=== PATIENT | male | born 1935 | race Caucasian/White ===

== ENCOUNTER 2017-01-13 14:36 | Inpatient (IN) | payer MEDICARE, MEDICAID ==
--- NOTE | 2017-01-13 15:29 | ED Physician Chart ---
ED Chief Complaint/HPI - Patient Information Date Seen:: 01/13/17 Time Seen:: 15:15 Chief Complaint:: Agitation History of Present Illness:: onset x 3 days of agitation, combative and aggressive behavior, confusion, and increased dementia; no report of trauma, H/As, Neck pain, C/P, SOB, cough, Abd. Pain, A/N/V/D/C, fever, chills, or urinary s/s; no SIs Allergies:: Allergies Allergy/AdvReac Type Severity Reaction Status Date / Time No Known Allergies Allergy Verified 01/13/17 15:13 Vitals:: Vital Signs - 8 hr 01/13/17 15:14 Temp 99.1 F HR 80 RR 19 BP 189/67 O2 Sat % 93 Historian:: Patient, Family Member Review:: Nurse's Note Reviewed ED Review of Systems - Review of Systems General/Constitutional: No fever, No chills, No weight loss, No weakness, No diaphoresis, No edema, No loss of appetite Skin: No skin lesions, No rash, No bruising Head: No headache, No light-headedness Eyes: No loss of vision, No pain, No diplopia ENT: No earache, No nasal drainage, No sore throat, No tinnitus Neck: No neck pain, No swelling, No thyromegaly, No stiffness, No mass noted Cardio Vascular: No chest pain, No palpitations, No PND, No orthopnea, No edema Pulmonary: No SOB, No cough, No sputum, No wheezing GI: No nausea, No vomiting, No diarrhea, No pain, No melena, No hematochezia, No constipation, No hematemesis G/U: No dysuria, No frequency, No hematuria Musculoskeletal: No bone or joint pain, No back pain, No muscle pain Endocrine: Polyuria, Polydipsia Psychiatric: No prior psych history, No depression, Anxiety, No suicidal ideation, No homicidal ideation, No auditory hallucination, No visual hallucination Hematopoietic: No bruising, No lymphadenopathy Allergic/Immuno: No urticaria, No angioedema Neurological: No syncope, No focal symptoms, No weakness, No paresthesia, No headache, No seizure, No dizziness, Confusion, No vertigo ED Past Medical History - Past Medical History Obtainable: Yes Past Medical History: HTN, DM, Dementia Family History: Diabetes Melitus, HTN Social History: Non Smoker, No Alcohol, No Drug Use, Surgical History: None Psychiatricy History: Dementia Medication: Reviewed ED Physical Exam - Physical Examination General/Constitutional: Awake, Well-developed, well-nourished, Alert, No distress, GCS 15, Non-toxic appearing, Ambulatory Head: Atraumatic Eyes: Lids, conjuctiva normal, PERRL, EOMI Skin: Nl inspection, No rash, No skin lesions, No ecchymosis, Well hydrated, No lymphadenopathy ENMT: External ears, nose nl, TM canals nl, Nasal exam nl, Lips, teeth, gums nl , Oropharynx nl, Tonsils nl Neck: Nontender, Full ROM w/o pain, No JVD, No nuchal rigidity, No bruit, No mass, No stridor Respiratory: Nl effort/Exclusion, Clear to Auscultation, No Wheeze/Rhonchi/Rales Cardio Vascular: RRR, No murmur, gallop, rubs, NL S1 S2, Carotid/Femoral/Distal pulses equal bilaterally GI: No tenderness/rebounding/guarding, No organomegaly, No hernia, Normal BS's, Nondistended, No mass/bruits, No McBurney tenderness : No CVA tenderness Extremities: No tenderness or effusion, Full ROM, normal strength in all extremities, No edema, Normal digits & nails Neuro/Psych: Alert/oriented, DTR's symmetric, Normal sensory exam, Normal motor strength, Judgement/insight normal, Mood normal, Normal gait, No focal deficits Other Neuro/Psych comments:: + Psychomotor Agitation; no SIs; Mood/Affect: Labile Misc: Normal back, No paraspinal tenderness ED Septic Shock - . Is Septic Shock (SBP<90, OR Lactate>4 mmol\L) present?: No - <6hrs of presentation: Vital Signs: Vital Signs - 8 hr 01/13/17 15:14 Temp 99.1 F HR 80 RR 19 BP 189/67 O2 Sat % 93 ED Reassessment (Disposition) - Reassessment Reassessment Condition:: Improved - Diagnosis Diagnosis:: Agitation; BiPolar Disorder; Dementia; Manic-Depression - Aftercare/Follow up Instructions Aftercare/Follow-Up Instructions:: Counseled pt regarding lab results/diagnosis & need follow up, Counseled pt & family regarding lab results/diagnosis & need follow up - Patient Disposition Discharge/Transfer:: Acute Care w/in this hosp Accepting Physician:: Dr. Oviedo Time Called:: 1520 Time Responded:: 15:20 Admitted to:: [facility] Spoke to:: Dr. Oviedo Admitting Medical Physician:: Dr. Oviedo Condition at Disposition:: Stable, Improved ED Discharge Plan - Patient Disposition Instructions: Psychosis
--- NOTE | 2017-01-13 15:46 | Diagnostic Imaging Report ---
CT scan of the brain without intravenous contrast HISTORY: Dementia Total DLP equals 1208 CTDI equals 77.7 Axial sections were obtained from the base of the skull to the vertex. There is prominence/enlargement of the ventricular system size. Associated enlargement of cerebral sulci and subarachnoid cisterns. Findings are consistent with changes of generalized cerebral atrophy. No acute parenchymal abnormalities. No acute cerebral hemorrhage. Hypodensity is seen within the supratentorial white matter regions without mass effect. The findings may be associated with chronic small vessel ischemic disease. No extra-axial masses or abnormal fluid collections. Atherosclerotic calcification noted in the region of the vertebral arteries at the base of the skull. IMPRESSION: 1. No acute abnormalities 2. Cerebral atrophy 3. Supratentorial white matter changes that may reflect chronic small vessel ischemic disease 4. Atherosclerotic vascular changes
--- NOTE | 2017-01-13 15:47 | Diagnostic Imaging Report ---
Portable chest x-ray HISTORY: Chest pain The overall heart size is difficult to assess with portable technique in a poor inspiration. A linear density is seen within the left lung base. The finding may be associated with scarring or subsegmental atelectasis. No other focal processes. Cardiac pacemaker lead wires project over the right atrium and right ventricle. No hilar or mediastinal abnormalities. IMPRESSION: 1. Linear density within the left lung base that may be associated with scarring or subsegmental atelectasis. No other focal processes.
[2017-01-13 16:03] LABS: ALB/GLOB RATIO 1.6 (1.0-1.8); ALBUMIN 4.2 gm/dL (4.2-5.5); ALKALINE PHOSPHATASE 80 U/L (34-104); ANION GAP 10.4 (7.0-16.0); BILIRUBIN,TOTAL 0.9 mg/dL (0.3-1.0); BUN - UREA NITROGEN 11 mg/dL (7-25); CALCIUM SERUM 9.5 mg/dL (8.6-10.3); CARBON DIOXIDE 27.5 mEq/L (21.0-31.0); CHLORIDE 99 mEq/L (98-107); CHOLESTEROL 101 mg/dL (<200); CREATININE - SERUM 0.7 mg/dL (0.7-1.3); CREATININE KINASE 41 U/L (30-223); GLUCOSE 195 mg/dL (70-105); HDL -HIGH DENSITY LIPOPROTEIN 40 mg/dL (23-92); POTASSIUM SERUM 3.9 mEq/L (3.5-5.1); SGOT 16 U/L (13-39); SGPT/ALT 18 U/L (7-52); SODIUM SERUM 133 mEq/L (136-145); TOTAL PROTEIN,SERUM 6.9 gm/dL (6.0-8.3); TRIGLYCERIDES 137 mg/dL (<150)
[2017-01-13 16:13] LABS: A1C % 7.4 % (4.0-6.0)
[2017-01-13 16:15] LABS: BASOPHILE ABSOLUTE 0.2 Th/cumm (0-0.2); EOSINOPHILE ABSOLUTE 0.2 Th/cmm (0.1-0.4); MEAN CORPUSCULAR HGB CONC 33.5 pg (28.0-36.0); NEUTROPHILE ABSOLUTE 7.8 Th/cmm (1.8-8.0)
[2017-01-13 16:18] LABS: % BASOPHILS 1.8 % (0.0-2.0); % EOSINOPHILS 2.1 % (0.0-5.0); % LYMPHOCYTES 23.6 % (20.0-50.0); % NEUTROPHILS 66.5 % (40.0-80.0); HEMATOCRIT 47.1 % (41.0-60); HEMOGLOBIN 15.8 gm/dL (12-16); LYMPHOCYTE ABSOLUTE 2.7 Th/cmm (1.5-3.0); MEAN CELL VOLUME 95.4 fl (80-99); MEAN CORPUSCULAR HEMOGLOBIN 31.9 pg (27.0-31.0); MEAN PLATELET VOLUME 9.5 fl; MONOCYTE ABSOLUTE 0.7 Th/cmm (0.3-1.0); PLATELET COUNT 154 Th/cmm (150-400); RED BLOOD COUNT 4.93 Mil/cmm (3.80-5.80); WHITE BLOOD COUNT 11.6 Th/cmm (4.8-10.8)
[2017-01-13 16:19] LABS: INR 0.95 (0.5-1.4); PROTHROMBIN TIME (TEST) 9.9 SECONDS (9.5-11.5)
[2017-01-13 16:29] LABS: URINE MICROSCOPIC INDICATED? YES; URINE SOURCE CLEAN C
[2017-01-13 16:35] LABS: URINE BILIRUBIN NEGATIVE (NEGATIVE); URINE BLOOD NEGATIVE (NEGATIVE); URINE GLUCOSE (UA) NEGATIVE (NEGATIVE); URINE KETONE NEGATIVE (NEGATIVE); URINE LEUKOCYTE ESTERASE NEGATIVE (NEGATIVE); URINE NITRATE NEGATIVE (NEGATIVE); URINE PH 5.5 (4.6 - 8.0); URINE PROTEIN NEGATIVE (NEGATIVE); URINE UROBILINOGEN 0.2 E.U./dL (0.2 - 1.0)
[2017-01-13 16:50] LABS: AMPHETAMINE URINE NEGATIVE (NEGATIVE); BARBITURATES URINE NEGATIVE (NEGATIVE); BENZODIAZEPINES QUAL URINE POSITIVE (NEGATIVE); CANNABINOID THC NEGATIVE (NEGATIVE); COCAINE METABOLITE QUAL URINE NEGATIVE (NEGATIVE); METHADONE URINE NEGATIVE (NEGATIVE); METHAMPHETAMINES QUAL URINE NEGATIVE (NEGATIVE); OPIATES (MORPHINE) QUAL. URINE NEGATIVE (NEGATIVE); PHENCYCLIDINE (PCP) URINE NEGATIVE (NEGATIVE); TRICYCLICS (TCA) QUAL. URINE NEGATIVE (NEGATIVE)
[2017-01-13 18:24] VITALS: BP 180/80
[2017-01-13] MEDS ORDERED: Magnesium Hydroxide (MOM) 30 mL UDC PO PRN (18:24)
[2017-01-13] MEDS ORDERED: Maalox 30 mL Cup PO PRN (18:24)
[2017-01-13 20:13] LABS: ACETAMINOPHEN < 10.0 ug/mL (10.0-30.0); SALICYLATES (ASPIRIN) < 25.0 mg/L (30.0-100.0)
[2017-01-13 21:04] LABS: URINE CLARITY CLEAR (CLEAR); URINE COLOR YELLOW
[2017-01-14] MEDS ORDERED: cloNIDine 0.3 mg/24 hr Tdm TD SCH (02:45)
[2017-01-14] MEDS: INSULIN ASPART SLIDING SCALE 100 UNITS/ML UNIT SUBQ SCH ×4 (07:05→20:41)
[2017-01-14 08:27] LABS: URINE BACTERIA OCCASIONAL /hpf (NONE SEEN); URINE EPITHELIAL CELLS OCCASIONAL /lpf (FEW); URINE RBC 0-2 /hpf (0-5); URINE WBC 0-2 /hpf (0-5)
[2017-01-14] MEDS ORDERED: cloNIDine 0.1 mg/24 hr Tdm TD SCH (11:00)
[2017-01-14] MEDS ORDERED: cloNIDine 0.2 mg/24 hr Tdm TD SCH (11:00)
[2017-01-14] MEDS: Multivitamin Tab PO SCH (11:28)
--- NOTE | 2017-01-15 01:43 | Psychosocial Evaluation ---
DATE OF SERVICE: 01/13/2017 IDENTIFYING DATA: The patient is an 81-year-old male living with his family. Information obtained by directly interviewing the patient as well as reviewing the admission papers and they are reliable. JUSTIFICATION OF HOSPITALIZATION: The patient is admitted on a voluntary basis in view of his acute psychosis. CHIEF COMPLAINT: "I don't know." HISTORY OF PRESENT ILLNESS: This is the first psychiatric hospitalization to [facility] for this patient who has been reported over here by Dr. Chantelle Oviedo. As per the information obtained, the patient is reported to have been acting very bizarre and has been trying to get into other people's places and has been acting inappropriately and patient's family could not contain him. The patient has been maintained on 0.25 mg of the Risperdal by Dr. Oviedo. The patient has not been able to contact with safety. The patient has also been treated for hypertension with clonidine. At the time of the evaluation, patient is confused and he is not making much sense. Insight and judgment at this time are noted to be very much impaired. Impulse control seems to be limited. The patient has been having difficult time to give any coherent information. The patient is going to be closely monitored. Sleep and appetite prior to the hospitalization are reported to be poor. PAST PSYCHIATRIC HISTORY: Details are not known. MEDICAL HISTORY: Physical examination is requested and done by Dr. Chantelle Oviedo and is noted to be significant for high blood pressure and diabetes. SUBSTANCE ABUSE HISTORY: None. PHYSICAL OR SEXUAL ABUSE HISTORY: None. LEGAL PROBLEMS: None at this time. STRENGTH AND ASSETS: The patient seems to be motivated and has good family support. MENTAL STATUS EXAMINATION: The patient is an 81-year-old, looking his stated age, superficially cooperative. Eye contact is fair. Mood is irritable. Affect is constricted. Coping skills at this time are noted to be poor. Insight and judgment are also noted to be impaired. The patient is reported to have been going into other people homes and has been acting inappropriate, particularly sexually. The patient at this time is very paranoid and is not making much sense. 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 DIAGNOSTIC IMPRESSION: AXIS I: A. Psychosis, not otherwise specified. B. Dementia and behavioral change secondary to it. AXIS II: None. AXIS III: Diabetes mellitus and hypertension. IMMEDIATE TREATMENT PLAN: The patient is going to be placed on the Risperdal 0.5 mg and continue the Namenda and Aricept. ESTIMATED LENGTH OF STAY: Three to five days. DISCHARGE CRITERIA: When he no longer is a threat to self or others and be able to cope up with the stress. JOB# [id number]
--- NOTE | 2017-01-15 05:48 | History & Physical ---
ADMIT DATE: 01/14/2017 HISTORY OF PRESENT ILLNESS: An 81-year-old male who was brought to the Emergency Room with complaint of abnormal behavior. The patient was going to neighbor's house and landlord complained. The patient was evaluated in the office and referred to the Emergency Room for immediate psych evaluation. The patient was given admission orders to Geropsych Unit. PAST MEDICAL HISTORY: Diabetes, hypertension, hyperlipidemia, low back pain, appendectomy, depression, anxiety. SOCIAL HISTORY: Nonsmoker. ALLERGIES: No allergies. MEDICATIONS: The patient already received influenza vaccine office on 10/31/2016 and PCV13 on 03/29/2012. REVIEW OF SYSTEMS: A 14-point review of system negative except above. PHYSICAL EXAMINATION: GENERAL/VITAL SIGNS: The patient is confused with the following vital signs: Temperature 98.4, pulse 68, respirations 19, blood pressure 119/79. HEENT: Mild pallor, no icterus or plaque. NECK: Supple. LUNGS: Breath sounds bilaterally vesicular. CARDIOVASCULAR: S1, S2. ABDOMEN: Soft, bowel sounds present. Pendulous abdomen. NODES: No thyroid and no cervical lymph nodes. LABORATORY DATA: RPR negative. White count 11,000, hemoglobin 15 grams, platelets 154. Creatinine 0.7. DIAGNOSES: Psychosis, abnormal behavior, inpatient care with Dr. Paula consult. Patient medication reconciled. Diabetes, insulin sliding scale. Ativan for anxiety. Benign prostatic hypertrophy, Flomax. Rest of the care as ordered in CPOE. JOB# [id number]
[2017-01-15] MEDS: INSULIN ASPART SLIDING SCALE 100 UNITS/ML UNIT SUBQ SCH ×2 (06:55→11:11)
[2017-01-15] MEDS: Multivitamin Tab PO SCH (08:43)
--- NOTE | 2017-01-15 23:14 | Progress Notes ---
DATE: 01/15/2017 SUBJECTIVE: Staff was spoken to. The patient is interviewed. Mood is noted to be irritable. Affect is constricted. Insight and judgment are noted to be still impaired. The patient is still having short-term as well as long-term memory deficits, but patient tends to be screaming and yelling. The patient needs to be redirected. No side effects to the medications are noted. Coping skills are noted to be still poor. Sleep is noted to be poor. Appetite is noted to be fair. ASSESSMENT: The patient is still psychotic. PLAN: To continue the patient with the current medications and follow. JOB# [id number]
== END 2017-01-15 15:00 | disposition left against medical advice (07) | DRG 885 ==
LOC: ER 14:36 → GERO 17:40
PROVIDERS: ADMIT Psychiatry & Neurology Psychiatry; ATTEND Psychiatry & Neurology Psychiatry
DX: F29 Unspecified psychosis not due to a substance or known physiological condition (principal); F03.91 Unspecified dementia, unspecified severity, with behavioral disturbance; E11.9 Type 2 diabetes mellitus without complications; F31.9 Bipolar disorder, unspecified; I10 Essential (primary) hypertension; N40.0 Benign prostatic hyperplasia without lower urinary tract symptoms; F41.9 Anxiety disorder, unspecified; Z82.49 Family history of ischemic heart disease and other diseases of the circulatory system; Z83.3 Family history of diabetes mellitus
CPT/HCPCS: 36415-UA; 70450-TC; 71010-TC; 80053-TC; 80061-TC; 80307; 80320-TC; 80329-TC; 81001-TC; 82550-TC; 82948-90; 83036-90; 83880-TC; 84443-TC; 84484-TC; 85025-TC; 85610-TC; 86592-TC; 93005; 94760; J1815; Z7610

== ENCOUNTER 2017-05-24 14:57 | Inpatient (IN) | payer MEDICARE, MEDICAID ==
[2017-05-24 16:13] LABS: % BASOPHILS 0.5 % (0.0-2.0); % EOSINOPHILS 1.8 % (0.0-5.0); % LYMPHOCYTES 21.8 % (20.0-50.0); % MONOCYTES 8.9 % (2.0-10.0); EOSINOPHILE ABSOLUTE 0.2 Th/cmm (0.1-0.4); HEMATOCRIT 42.8 % (41.0-60); HEMOGLOBIN 14.2 gm/dL (12-16); MEAN CELL VOLUME 94.4 fl (80-99); MEAN CORPUSCULAR HEMOGLOBIN 31.4 pg (27.0-31.0); MEAN CORPUSCULAR HGB CONC 33.2 pg (28.0-36.0); MEAN PLATELET VOLUME 8.1 fl; MONOCYTE ABSOLUTE 0.8 Th/cmm (0.3-1.0); NEUTROPHILE ABSOLUTE 6.4 Th/cmm (1.8-8.0); PLATELET COUNT 269 Th/cmm (150-400); RED BLOOD COUNT 4.54 Mil/cmm (3.80-5.80); WHITE BLOOD COUNT 9.4 Th/cmm (4.8-10.8)
[2017-05-24 16:24] LABS: PROTHROMBIN TIME (TEST) 10.4 SECONDS (9.5-11.5)
[2017-05-24 16:29] LABS: ALB/GLOB RATIO 1.9 (1.0-1.8); BILIRUBIN,DIRECT 0.2 mg/dL (0.0-0.2); TOTAL PROTEIN,SERUM 6.1 gm/dL (6.0-8.3)
[2017-05-24 16:31] LABS: ALB/GLOB RATIO 1.5 (1.0-1.8); ALBUMIN 3.9 gm/dL (4.2-5.5); ALKALINE PHOSPHATASE 56 U/L (34-104); ANION GAP 11.8 (7.0-16.0); BUN - UREA NITROGEN 20 mg/dL (7-25); CALCIUM SERUM 9.3 mg/dL (8.6-10.3); CARBON DIOXIDE 22.4 mEq/L (21.0-31.0); CHLORIDE 101 mEq/L (98-107); CREATININE - SERUM 0.9 mg/dL (0.7-1.3); GLUCOSE 272 mg/dL (70-105); POTASSIUM SERUM 4.2 mEq/L (3.5-5.1); SGOT 10 U/L (13-39); SGPT/ALT 11 U/L (7-52); SODIUM SERUM 131 mEq/L (136-145); TOTAL PROTEIN,SERUM 6.5 gm/dL (6.0-8.3)
[2017-05-24] MEDS ORDERED: Acetaminophen 500 MG TAB PO ONE (17:58)
[2017-05-24] MEDS ORDERED: Acetaminophen 500 MG TAB ONE ×2 (18:28)
[2017-05-24] MEDS ORDERED: Magnesium Hydroxide (MOM) 30 mL UDC PO PRN (20:00)
[2017-05-24 21:31] LABS: A1C % 7.5 % (4.0-6.0)
--- NOTE | 2017-05-24 23:05 | ER Physician Documentation ---
DATE OF SERVICE: 05/24/2017 EMERGENCY ROOM EVALUATION AND TREATMENT IDENTIFICATION: An 81-year-old male patient, looks about 5 years younger than his stated age. Evaluated by the triage nurse at 1500 hours and I saw him something like about a half an hour after that. [facility]. The patient was sent here for the medical checkup and if nothing serious is found, then the patient should go to psych facility. Temperature is found to be 99.1, pulse is 90, respirations 21, blood pressure 156/65, oxygen saturation is 97%. The patient is not in a condition to give me any history. He knows that he is in the hospital, he can recognize his daughter and the granddaughter, but to the other gentleman who is there he says that is his son, but the gentleman was the of his daughter, the son-in-law. History of present illness and review of systems could not be obtained. On physical examination, he is awake. He knows he is in the hospital. He is not in any acute cardiorespiratory distress. General exam is benign and negative. No suture. Good hair growth. Carotids are normal. Normal uplift. No cyanosis, petechia, or ecchymosis. Peripheral pulses are normal. No deep vein thrombophlebitis. Permanent pacemaker is seen in the left subpectoral area. Chest is found to be clear. Trachea is being central. Fairly good air entry in both lungs without any rales, rhonchi, or bronchial wheezing. Abdomen is soft, obese, benign, and umbilicus is protruding out thereby telling us that there might be some ascites present in the belly. Whether it is because of the liver cirrhosis or whether pancreatic fluid is present in the belly, but most likely it is a cirrhotic fluid. 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 EKG was just done showing old inferior wall myocardial infarction and minor nonspecific ST changes in lead 1 and aVL and possibly left atrial enlargement is a probability. Counterclockwise rotation of the heart. So, in view of that, it is possible that the patient suffered an inferior wall SD and had a complete heart block at that time and if that is the reason, usually with inferior wall SD, the complete heart block returns back to normal and you do not need usually a permanent pacemaker, but I am not sure what was the situation during which this pacemaker was inserted about 4-5 years ago. The patient is getting lactulose solution that tells us that the patient has cirrhotic liver by all means, unless the patient has chronic constipation for which lactulose is given. Lactulose could be double use for constipation and also for cirrhotic liver. The patient is taking Lipitor, thereby patient may be having high cholesterol. The patient has depression for which he is taking Namenda 5 mg a day, Naprosyn twice a day for pain and this could hurt his kidneys. As much as possible, Naprosyn should be cut down or discontinued. Protonix for gastroesophageal reflux disease. NovoLog sliding scale for insulin. Risperdal tablet 0.25 mg 1 tablet by mouth twice a day for psychotic behavior. It is also given for Parkinson's. It is also given for restless legs syndrome. The patient is taking Tylenol for simple pain, valsartan that is angiotensin receptor blocking agent 160 mg by mouth once a day. The patient is taking vitamin D3, 1000 units once a day; and Voltaren gel, Voltaren is an HELEN inhibitor and gel 1% is diclofenac, that is a nonsteroidal anti-inflammatory medication. One of my patients had very severe reaction with diclofenac leading to liver failure and so this has to be used very carefully. The patient is also taking Voltaren XR tablet extended release 24 hours 100 mg, which is a very high dosage, usually 50 mg is the dose chosen for anti-inflammatory arthritis medication, but we will leave it for the MD who is in charge of the patient to decide, but I would recommend that valsartan to be divided into 80 mg twice a day instead of 160 mg once a day, Voltaren gel if possible to be stopped. Voltaren XR tablet if possible one can stop it. Prevention is better than cure. Psychiatric gonzalez, he is taking Aricept tablet 5 mg once a day, that is donepezil; Ativan 0.5 mg a day; buspirone/hydrochloride 10 mg 1 tablet by mouth once a day; Catapres tablet he is taking one tablet every 6 hours plus he is taking a patch 0.2 mg every 24 hours, ideally 0.2 mg every weekly is to be given and he is getting that every weekly plus the patient is getting aspirin once a day; Flomax usually given for enlarged prostate. He is taking Glucophage tablet, metformin 1 tablet by mouth twice a day 500 mg. In conclusion, the final diagnosis is the patient has inappropriate behavior, psychosis, diabetes mellitus, hypertension, hyperlipidemia, difficulty in walking, not elsewhere classified, abnormal posture, essential hypertension, benign prostatic hypertrophy without lower urinary tract symptoms, hyperlipidemia, gastroesophageal reflux disease, unspecified, dementia without behavioral disturbances, anxiety disorder, atherosclerotic heart disease of [place] coronary arteries without angina pectoris. The patient has a permanent pacemaker in the left subclavicular area, presence of cardiac pacemaker. It looks like it is a simple pacemaker. If it is put in during the complete heart block of inferior wall SD, then the pacemaker may not be of much help at the present moment and may last for years. The patient also has type 2 diabetes and neuropathy for which he takes metformin along with insulin supplementation. Urinary tract infection, most likely this comes from enlarged prostate in men, urine infection starts from the prostate area. The lab that was done at other institution showed white count of 10.98, hemoglobin to be 14.6, hematocrit is 44.0, platelet count is 142, neutrophils are 72.6. Electrolytes were found to be normal, except the potassium was found to be 3.6. Random glucose at one time was 102, BUN was 11, creatinine of 0.65. So, the plan is to examine him, get the labs done. If the labs are normal, then the patient will go to the psych facility. 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 JOB# [id number]
[2017-05-25 01:11] VITALS: BP 161/91
[2017-05-25] MEDS: INSULIN ASPART SLIDING SCALE 100 UNITS/ML UNIT SUBQ SCH ×4 (07:08→21:00)
--- NOTE | 2017-05-25 08:31 | Diagnostic Imaging Report ---
CHEST X-RAY: AP view INDICATION: Pneumonia COMPARISON: 01/13/2017 FINDINGS: Left chest wall pacemaker is stable. Left basal linear markings are noted with left basal pleural thickening. No focal consolidation. Heart size normal. Osseous structures are intact. IMPRESSION: Left basal linear markings which may be due to subsegmental atelectasis versus scarring. No focal consolidation identified. Pacemaker noted.
[2017-05-25] MEDS: Pantoprazole 40 mg EC Tab PO SCH (08:43)
[2017-05-25] MEDS: Lidocaine 5% Patch TD SCH (10:00)
--- NOTE | 2017-05-25 19:05 | Psychosocial Evaluation ---
DATE OF SERVICE: 05/25/2017 JUSTIFICATION FOR HOSPITALIZATION: The patient coming in from [facility] rehabilitation due to inappropriate behaviors, agitation, could not be cared for at a lower level of care. CHIEF COMPLAINT: "I am not good. My head hurts." HISTORY OF PRESENT ILLNESS: An 81-year-old male, poor historian. The patient had apparently been inappropriate custodial. The patient went to the ER due to medical clearance. The patient is AO to name. He knows that he is in the hospital. He does not know why he is in the hospital, states here because of a headache and "I am not good." Apparently was acting quite inappropriately at custodial. The patient not answering most questions. At some point, refusing to speak with me. PAST PSYCHIATRIC HISTORY: Unclear. FAMILY HISTORY: Unclear. SOCIAL HISTORY: The patient states he was born in [facility], states he is , states he lives in [place] with his daughter, but apparently coming from a custodial. He states he has 5 kids. Not answering some questions. MEDICATIONS: Noted. MENTAL STATUS EXAMINATION: Stated age. Fair eye contact. Speech within normal limits, irritable, evasive and guarded. Mood "not good." Affect flat. Thought processes were somewhat disoriented. No SI, no HI, unclear psychotic symptoms. He was apparently quite unruly at custodial. Insight and judgment diminished. PROVISIONAL DIAGNOSES: Dementia per documentation, dementia with behaviors, psychosis unspecified, anxiety unspecified. MEDICAL: Please see full H and P. ESTIMATED LENGTH OF STAY: 5-7 days. ASSESSMENT: The patient requiring inpatient hospitalization, unruly behaviors and appropriate behaviors, poor historian. PLAN: We will continue to monitor. We will adjust and titrate medications. We will address any unruly and inappropriate behaviors. TREATMENT PLAN: Includes group as well as milieu therapy. CONDITIONS FOR DISCHARGE: Improved mood, improved affect, better control of his behavioral symptoms and any agitation. JOB# [id number]
--- NOTE | 2017-05-25 20:34 | Consultation ---
DATE OF CONSULTATION: 05/24/2017 INTERNAL MEDICINE CONSULTATION HISTORY OF PRESENT ILLNESS: The patient is an 81-year-old male known to me being the primary care physician. PAST MEDICAL HISTORY: Significant for diabetes mellitus, diabetic angiopathy, neuropathy, nephropathy, hypertension, coronary artery disease, peptic ulcer disease, ____ arthritis, osteoporosis, and hyperlipidemia. CURRENT MEDICATIONS: Include Tylenol, baby aspirin, Lipitor 40 mg daily, sliding scale, the patient is on milk of magnesia, Namenda, Glucophage 500 twice a day, Naprosyn 375 twice a day, Flomax 0.4 mg daily, and Protonix 40 mg daily. SOCIAL HISTORY: No documented smoking or alcohol abuse. FAMILY HISTORY: Not available. REVIEW OF SYSTEMS: The patient has been very aggressive and was transferred to [facility]. No vomiting, no diarrhea, no melena, no hematochezia. PHYSICAL EXAMINATION: GENERAL: Average male, in no obvious respiratory distress. VITAL SIGNS: Include a blood pressure 140/80, heart rate 80, and respiration rate of 18. SKIN: Showed no obvious cellulitis. HEENT: Normal conjunctivae. NECK: Supple. LUNGS: Clear. HEART: First and second present. ABDOMEN: Soft, bowel sounds good. EXTREMITIES: Show arthritis. NEUROLOGIC: The patient has dementia. LABORATORY DATA: White count 9.4, hemoglobin 14.2, hematocrit 42.8, and platelet count of 269. Sodium 131, potassium 4.2, chloride 101, bicarbonate 22, BUN 20, creatinine 0.9, and blood sugar 272. Hemoglobin A1c 7.5. MEDICAL DIAGNOSES: Diabetes mellitus, diabetic angiopathy, neuropathy, hypertension, coronary artery disease, peptic ulcer disease, ____, arthritis, osteoporosis, and hyperlipidemia. JOB# [id number]
[2017-05-25] MEDS ORDERED: DICLOFENAC SODIUM 1% TP SCH (21:00)
[2017-05-26] MEDS: INSULIN ASPART SLIDING SCALE 100 UNITS/ML UNIT SUBQ SCH ×4 (07:04→21:03)
[2017-05-26] MEDS: Pantoprazole 40 mg EC Tab PO SCH (08:19)
[2017-05-26] MEDS: Lidocaine 5% Patch TD SCH (10:00)
--- NOTE | 2017-05-26 18:12 | Progress Notes ---
DATE: 05/26/2017 SUBJECTIVE: The patient is coming in from [facility] due to inappropriate behaviors, agitation, still claiming he has a headache, very upset, still with aggressive behaviors, unruly behaviors, agitated behaviors. The patient refusing to answer most questions, does not want to engage with me. Medications were noted including doses and frequencies. ASSESSMENT: The patient remains symptomatic, still unruly, agitated, recent dose increase of Risperdal, not safe for a lower level of care. We will monitor and follow up. JOB# [id number]
[2017-05-27] MEDS: INSULIN ASPART SLIDING SCALE 100 UNITS/ML UNIT SUBQ SCH ×4 (06:47→20:51)
[2017-05-27] MEDS: Pantoprazole 40 mg EC Tab PO SCH (09:16)
[2017-05-27] MEDS: Lidocaine 5% Patch TD SCH (10:14)
[2017-05-27] MEDS: Lactulose 10 Gm/15 mL 30mL UDC PO SCH (17:59)
--- NOTE | 2017-05-28 00:47 | Progress Notes ---
DATE: 05/27/2017 The patient is coming in from [facility], inappropriate behaviors, agitation. States he is here because he has a headache, still isolative, withdrawn, not really engaging with me, mumbling to self, not answering any questions, not a very good historian, difficult to get any information out of him. On a positive note, he has been calm, no lashing out behaviors, no combative behaviors, he just seems quite confused. ASSESSMENT: The patient remains symptomatic, ongoing safety concerns. We will try to increase collateral. I do have concerns about his impulse control. JOB# [id number]
[2017-05-28] MEDS: INSULIN ASPART SLIDING SCALE 100 UNITS/ML UNIT SUBQ SCH ×4 (06:47→21:07)
[2017-05-28] MEDS: Lactulose 10 Gm/15 mL 30mL UDC PO SCH ×2 (08:31→16:37)
[2017-05-28] MEDS: Pantoprazole 40 mg EC Tab PO SCH (08:32)
[2017-05-28] MEDS: Lidocaine 5% Patch TD SCH (09:15)
--- NOTE | 2017-05-28 17:50 | Progress Notes ---
DATE: 05/28/2017 The patient is coming in from [facility] rehab due to inappropriate behaviors, agitation, bizarre behaviors, mumbling to self, trying to get sexual favors from other patients, committing sexual acts on himself which are quite bizarre in nature. The patient answering no questions whatsoever, still with bizarre symptoms, seemingly psychotic symptoms, highly sexualized and inappropriate symptoms. He remains reclusive. ASSESSMENT: The patient remains symptomatic as noted, not safe for a lower level of care, staff concerned. Given his ongoing behaviors, I will be increasing Risperdal today. Medications were reviewed. JOB# [id number]
[2017-05-29] MEDS: INSULIN ASPART SLIDING SCALE 100 UNITS/ML UNIT SUBQ SCH ×4 (06:36→21:20)
[2017-05-29] MEDS: Lactulose 10 Gm/15 mL 30mL UDC PO SCH ×2 (10:00→17:04)
[2017-05-29] MEDS: Pantoprazole 40 mg EC Tab PO SCH (10:00)
[2017-05-29] MEDS: Lidocaine 5% Patch TD SCH (11:44)
--- NOTE | 2017-05-30 01:56 | Progress Notes ---
DATE: 05/29/2017 The patient coming in from [facility] due to inappropriate behaviors, agitation, bizarre behaviors, still bizarre on the unit, sexually inappropriate on the unit, hypersexual in the unit. The patient states he "does not feel good," that is all he has been telling me, that he has a headache from time to time or that he just feels "sick," but he remains highly reclusive, bizarre, not saying much, highly disoriented. Dr. Scales is on the case and is addressing any medical concerns. Medications were noted. ASSESSMENT: The patient remains symptomatic, bizarre, still with ongoing psychotic behaviors, unruly behavior, still in a Cristina chair. We will continue to monitor. I did increase Risperdal yesterday. JOB# [id number]
[2017-05-30] MEDS: INSULIN ASPART SLIDING SCALE 100 UNITS/ML UNIT SUBQ SCH ×4 (06:46→20:16)
--- NOTE | 2017-05-30 08:13 | Progress Notes ---
DATE: 05/30/2017 The patient coming in from [facility] due to inappropriate behaviors, agitation, bizarre behaviors, sexually inappropriate on the unit. On [id number], the patient cursing, stating he does not want to talk to me, still bizarre, reclusive, isolative, still highly impulsive, unpredictable and hypersexual. ASSESSMENT: The patient remains symptomatic, hypersexual, bizarre, still unruly at times, confused, not answering any questions appropriately, refusing to speak with me in fact. Medications were noted. We will monitor and follow up. [facility]# [id number]
[2017-05-30] MEDS: Lidocaine 5% Patch TD SCH (09:40)
[2017-05-30] MEDS: cloNIDine 0.2 mg/24 hr Tdm TD SCH (09:43)
[2017-05-30] MEDS: Lactulose 10 Gm/15 mL 30mL UDC PO SCH ×2 (09:47→17:13)
[2017-05-30] MEDS: Pantoprazole 40 mg EC Tab PO SCH (09:50)
[2017-05-31] MEDS: INSULIN ASPART SLIDING SCALE 100 UNITS/ML UNIT SUBQ SCH ×4 (06:39→22:01)
--- NOTE | 2017-05-31 06:53 | Progress Notes ---
DATE: The patient seen, chart reviewed, discussed with staff. The patient seen today on 05/31/2017, coming in from physical rehabilitation due to inappropriate behaviors. Staff noting no sexually inappropriate behaviors for some days, but last week he was quite sexually inappropriate, bizarre. He remains hypersexual, highly impulsive, unpredictable, very confused, does not know where he is and does not why he is here. Does not know the year, the month, the day, or the week. Medications were noted. ASSESSMENT: The patient remains symptomatic, highly impulsive, unpredictable, still bizarre behaviors, unruly behaviors. Medications were noted. No overt side effects. Currently on low-dose Risperdal, it seems to be helping. PLAN: We will continue to monitor and follow up. Given his ongoing behaviors, he is not safe for discharge. JOB# [id number]
[2017-05-31] MEDS: Lactulose 10 Gm/15 mL 30mL UDC PO SCH ×2 (09:36→17:40)
[2017-05-31] MEDS: Lidocaine 5% Patch TD SCH (09:37)
[2017-05-31] MEDS: Pantoprazole 40 mg EC Tab PO SCH (09:42)
[2017-06-01] MEDS: INSULIN ASPART SLIDING SCALE 100 UNITS/ML UNIT SUBQ SCH ×4 (05:33→22:00)
[2017-06-01] MEDS: Pantoprazole 40 mg EC Tab PO SCH (10:11)
[2017-06-01] MEDS: Lactulose 10 Gm/15 mL 30mL UDC PO SCH ×2 (10:13→17:21)
[2017-06-01] MEDS: Lidocaine 5% Patch TD SCH (13:35)
--- NOTE | 2017-06-01 23:27 | Progress Notes ---
DATE: 06/01/[address] Benedict Esquivel. Case was discussed with staff of the patient, reviewed records. This is an 81-year-old male who was admitted on 05/24/2017. He is a poor historian and has been inappropriate at long-term facility on the Emergency Room due to medical clearance. He is oriented to name only. He knew he was in the hospital, know why he was in the hospital because he said he was admitted because of headache, acting quite inappropriate at long-term facility, not answer most questions, then refused to speak to Dr. Esquivel. Currently, he continues to be confused, unable to make a safe plan for self-care, unpredictable, impulsive demented. Continues to be acting inappropriate sexually with the staff. He continues to be acting bizarre. Continues to be highly impulsive, needing redirection. He is compliant with the medication with no side effects, no sedation, no nausea. He is on Aricept 5 mg twice a day and Namenda 5 mg daily and Risperdal 0.5 mg twice a day and I will be increasing his Namenda dose to 5 mg twice a day. We will continue to work with the patient in group therapy, milieu therapy and adjust the medication as needed. JOB# [id number]
[2017-06-02] MEDS: INSULIN ASPART SLIDING SCALE 100 UNITS/ML UNIT SUBQ SCH ×3 (06:37→21:53)
[2017-06-02] MEDS: Lactulose 10 Gm/15 mL 30mL UDC PO SCH ×2 (08:54→18:54)
[2017-06-02] MEDS: Pantoprazole 40 mg EC Tab PO SCH (08:54)
[2017-06-02] MEDS: Lidocaine 5% Patch TD SCH (08:55)
--- NOTE | 2017-06-02 21:47 | Progress Notes ---
DATE: 06/02/[address] Esquivel. Case was discussed with staff of the patient and reviewed records. The patient continues to be demented, confused, and unable to make safe plan for self-care. He needs frequent redirection. Continues to have poor insight. Unable to make safe plan for self-care. He is demented and confused. The patient continues to need redirection, unpredictable, impulsive, and confused. No side effects to the medications, no sedation, no nausea, and no extrapyramidal symptoms. I did increase his Namenda dose yesterday. We will continue to work with the patient in group therapy, milieu therapy, adjust the medications as needed. JOB# [id number]
[2017-06-03] MEDS: INSULIN ASPART SLIDING SCALE 100 UNITS/ML UNIT SUBQ SCH ×4 (06:36→21:23)
[2017-06-03] MEDS: Lactulose 10 Gm/15 mL 30mL UDC PO SCH ×2 (09:05→17:39)
[2017-06-03] MEDS: Lidocaine 5% Patch TD SCH (09:10)
[2017-06-03] MEDS: Pantoprazole 40 mg EC Tab PO SCH (09:13)
--- NOTE | 2017-06-04 02:02 | Progress Notes ---
DATE: 06/03/2017 Case was discussed with staff of the patient and reviewed records. Covering for Dr. Esquivel. The patient continues to be agitated, irritable, continues to have poor insight and unable to make safe plan for self-care, continues to have anger outburst. He is sleeping well, eating well. No side effects, no sedation, no nausea, no extrapyramidal symptoms. We will continue to work with the patient in group therapy, milieu therapy, and adjust medications. JOB# [id number]
[2017-06-04] MEDS: INSULIN ASPART SLIDING SCALE 100 UNITS/ML UNIT SUBQ SCH ×4 (06:39→21:26)
[2017-06-04] MEDS: Lactulose 10 Gm/15 mL 30mL UDC PO SCH ×2 (10:00→17:01)
[2017-06-04] MEDS: Lidocaine 5% Patch TD SCH (10:00)
[2017-06-04] MEDS: Pantoprazole 40 mg EC Tab PO SCH (10:00)
--- NOTE | 2017-06-04 22:05 | Progress Notes ---
DATE: 06/04/2017 The patient currently agitated, irritable, still in the hospital. The patient is eating fairly well, sleeping well. remains highly reclusive, isolative. Dr. Thurston is seeing the patient over the past few days, noted that he continued to have some behaviors, poor orientation, confused, acting bizarre, highly impulsive. MEDICATIONS: Reviewed including dosages and frequencies. ASSESSMENT: The patient remains symptomatic, not safe for a lower level of care, still symptomatic and unruly at times. PLAN: We will continue to monitor and titrate and adjust medications. Given his ongoing symptoms, he is not safe for discharge. JOB# [id number]
[2017-06-05] MEDS: INSULIN ASPART SLIDING SCALE 100 UNITS/ML UNIT SUBQ SCH ×4 (06:36→20:57)
[2017-06-05] MEDS: Pantoprazole 40 mg EC Tab PO SCH (08:32)
[2017-06-05] MEDS: Lactulose 10 Gm/15 mL 30mL UDC PO SCH ×2 (08:33→16:45)
[2017-06-05] MEDS: Lidocaine 5% Patch TD SCH (09:49)
--- NOTE | 2017-06-05 18:39 | Progress Notes ---
DATE: 06/05/2017 The patient is currently in the hospital, still at times remains agitated, highly isolative, noted to have continued poor orientation, acting bizarre at times, highly impulsive. He is seemingly calmer today, seems to be more redirectable, taking his medications as tolerated. He had been sexually inappropriate on the unit, but seems to be doing better in this regard. Medications were reviewed including Risperdal, Namenda, Aricept. ASSESSMENT: The patient remains impulsive, unpredictable, but some of his bizarre behaviors are calming down, hypersexual behavior is calming down, but there are concerns that due to his impulse control and disorientation these behaviors may start up again. For now, we will continue to monitor. We are also trying to confirm safe discharge plan. JOB# [id number]
[2017-06-06] MEDS: INSULIN ASPART SLIDING SCALE 100 UNITS/ML UNIT SUBQ SCH ×4 (06:46→22:00)
[2017-06-06] MEDS: Pantoprazole 40 mg EC Tab PO SCH (09:29)
[2017-06-06] MEDS: Lactulose 10 Gm/15 mL 30mL UDC PO SCH ×2 (09:30→18:10)
[2017-06-06] MEDS: Lidocaine 5% Patch TD SCH (09:38)
[2017-06-06] MEDS: cloNIDine 0.2 mg/24 hr Tdm TD SCH (12:32)
[2017-06-07] MEDS: INSULIN ASPART SLIDING SCALE 100 UNITS/ML UNIT SUBQ SCH ×4 (09:15→22:01)
[2017-06-07] MEDS: Pantoprazole 40 mg EC Tab PO SCH (09:18)
[2017-06-07] MEDS: Lactulose 10 Gm/15 mL 30mL UDC PO SCH ×2 (10:39→17:15)
[2017-06-07] MEDS: Lidocaine 5% Patch TD SCH (10:39)
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
[2017-06-08] MEDS: INSULIN ASPART SLIDING SCALE 100 UNITS/ML UNIT SUBQ SCH ×4 (06:42→21:16)
[2017-06-08] MEDS: Pantoprazole 40 mg EC Tab PO SCH (08:45)
[2017-06-08] MEDS: Lidocaine 5% Patch TD SCH (08:47)
[2017-06-08] MEDS: Lactulose 10 Gm/15 mL 30mL UDC PO SCH ×2 (08:48→16:44)
--- NOTE | 2017-06-08 10:05 | Progress Notes ---
DATE: 06/07/2017 SUBJECTIVE: The patient was seen and evaluated. The patient's chart reviewed. Covering for Dr. Esquivel. Today on [id number] evaluation, the patient mostly just stares with some thought blocking, disengaged, not giving much information. Yesterday, nursing staff reported some behavior that is still hypersexual behavior, inappropriate, but improving and more redirectable. MENTAL STATUS EXAMINATION: redirectable behavior, still disengaged on interview. ASSESSMENT AND PLAN: The patient remains somewhat impulsive, unpredictable, although he is hypersexual behaviors redirectable. We will continue working manager of case for safety as behavior continues to improve. JOB# [id number]
--- NOTE | 2017-06-08 18:28 | Progress Notes ---
DATE: 06/08/2017 SUBJECTIVE: The patient was seen by Dr. Valencia over the weekend and noted to still have some thought blocking, highly disengaged, had apparently been hypersexual in the unit, manic appearing and now seems to have swung toward depression, isolative, despairing, reclusive, mostly in his bed, not showering for ADLs, sometimes hard to redirect. MEDICATIONS: Noted. MENTAL STATUS EXAMINATION: Stated age, done not say much, withdrawn, still remains highly impulsive, concerns about behavior, lability. PLAN: We will continue to monitor, treat underlying mood symptoms. Increase Risperdal today. Given his ongoing symptoms, there are overt safety concerns. JOB# [id number]
[2017-06-09] MEDS: INSULIN ASPART SLIDING SCALE 100 UNITS/ML UNIT SUBQ SCH ×4 (06:35→22:05)
[2017-06-09] MEDS: Lactulose 10 Gm/15 mL 30mL UDC PO SCH ×2 (09:42→16:33)
[2017-06-09] MEDS: Pantoprazole 40 mg EC Tab PO SCH (09:44)
[2017-06-09] MEDS: Lidocaine 5% Patch TD SCH (10:00)
--- NOTE | 2017-06-09 16:07 | Progress Notes ---
DATE: 06/09/2017 SUBJECTIVE: The patient remains isolative, confused, noted to be depressed, withdrawn, isolative, likely approaching his baseline. He has been very hypersexual and agitated, but seems to be now on the other end of the spectrum, reclusive, isolates mostly, hard to redirect at times. MEDICATIONS: Noted. MENTAL STATUS EXAMINATION: Stated age, not saying much, withdrawn, somewhat confused, and disoriented. No longer hypersexual. PLAN: We will continue to monitor. I did adjust his medications. We will reach out to family today. JOB# [id number]
[2017-06-10] MEDS: INSULIN ASPART SLIDING SCALE 100 UNITS/ML UNIT SUBQ SCH (06:40)
[2017-06-10] MEDS: Pantoprazole 40 mg EC Tab PO SCH (09:43)
[2017-06-10] MEDS: Lactulose 10 Gm/15 mL 30mL UDC PO SCH (09:45)
--- NOTE | 2017-06-10 17:57 | Discharge Summary ---
DATE OF DISCHARGE: 06/10/2017 JUSTIFICATION FOR HOSPITALIZATION: Inappropriate behaviors, agitation and hypersexual. HISTORY OF PRESENT ILLNESS: An 81-year-old male, seems to be quite demented, confused, disoriented, acting bizarre, hypersexual in nature, unable to be cared for at a lower level. PAST PSYCHIATRIC HISTORY: It seems he does have history of dementia. SOCIAL HISTORY: Born in [facility], , good family support, daughter very involved. Notes he has a fairly poor baseline, mostly reclusive, isolative. MEDICATIONS: Noted. MENTAL STATUS EXAMINATION: Please see full psych eval for details. HOSPITAL COURSE: After initial assessment, the patient was very hypersexual, bizarre, quite a lot of prompting, he was quite psychotic, delusional. Risperdal was initiated and increased, also Namenda. Over the course of the hospitalization, he improved, albeit slowly. His behavior started to tamper down. He is more redirectable. He started to approach his baseline, which was confused, isolating, and requiring a lot of redirection, help with ADLs. Toward the latter end of his hospitalization, he was asymptomatic. Placement was confirmed. I spoke with daughter and he was discharged. CONDITION UPON DISCHARGE: Improved, allowing ADLs. No agitation. No escalation of behaviors. Remains confused and disoriented. No SI. No HI. No psychosis. No hypersexual behaviors. Better impulse control. Sleeping well, eating well. PROVISIONAL DIAGNOSES: Dementia with behaviors; psychosis, unspecified; mood, unspecified; anxiety, unspecified. Medical: Please see full H and P. PROGNOSIS: The patient follows up with outpatient mental health services and remains compliant with treatment. Prognosis will improve, otherwise guarded. JOB# [id number]
== END 2017-06-10 15:50 | DRG 884 ==
LOC: ER 14:57 → GERO2 19:30 → GERO 05-25 17:26
PROVIDERS: ADMIT Psychiatry & Neurology Psychiatry; ATTEND Psychiatry & Neurology Psychiatry
DX: F03.91 Unspecified dementia, unspecified severity, with behavioral disturbance (principal); N39.0 Urinary tract infection, site not specified; E11.40 Type 2 diabetes mellitus with diabetic neuropathy, unspecified; E11.51 Type 2 diabetes mellitus with diabetic peripheral angiopathy without gangrene; F29 Unspecified psychosis not due to a substance or known physiological condition; F41.9 Anxiety disorder, unspecified; I10 Essential (primary) hypertension; I25.10 Atherosclerotic heart disease of native coronary artery without angina pectoris; K27.9 Peptic ulcer, site unspecified, unspecified as acute or chronic, without hemorrhage or perforation; M19.90 Unspecified osteoarthritis, unspecified site; M81.0 Age-related osteoporosis without current pathological fracture; E78.5 Hyperlipidemia, unspecified; Z95.0 Presence of cardiac pacemaker; N40.0 Benign prostatic hyperplasia without lower urinary tract symptoms; K21.9 Gastro-esophageal reflux disease without esophagitis
CPT/HCPCS: 36415-UA; 71045-TC; 80053-TC; 80076-TC; 82948-90; 83036-90; 83690-TC; 83735-TC; 85025-TC; 85610-TC; 93005; J1815; Z7610

== ENCOUNTER 2017-10-27 13:48 | Inpatient (IN) | payer MEDICAID, MEDICARE ==
--- NOTE | 2017-10-27 14:03 | ED Physician Chart ---
ED Chief Complaint/HPI - Patient Information Date Seen:: 10/27/17 Time Seen:: 13:45 Chief Complaint:: Agitation History of Present Illness:: onset x 3 days of agitation and aggressive behavior; no report of trauma, SIs, H /As, neck pain, C/P, SOB, Abd. Pain, A/N/V/D/C, fever, chills, or urinary s/s Allergies:: Allergies Allergy/AdvReac Type Severity Reaction Status Date / Time No Known Allergies Allergy Verified 01/13/17 15:13 Historian:: Patient, EMS Review:: Nurse's Note Reviewed, Old Chart Reviewed, EMS run form Reviewed ED Review of Systems - Review of Systems General/Constitutional: No fever, No chills, No weight loss, No weakness, No diaphoresis, No edema, No loss of appetite Skin: No skin lesions, No rash, No bruising Head: No headache, No light-headedness Eyes: No loss of vision, No pain, No diplopia ENT: No earache, No nasal drainage, No sore throat, No tinnitus Neck: No neck pain, No swelling, No thyromegaly, No stiffness, No mass noted Cardio Vascular: No chest pain, No palpitations, No PND, No orthopnea, No edema Pulmonary: No SOB, No cough, No sputum, No wheezing GI: No nausea, No vomiting, No diarrhea, No pain, No melena, No hematochezia, No constipation, No hematemesis G/U: No dysuria, No frequency, No hematuria, No nacturia Musculoskeletal: No bone or joint pain, No back pain, No muscle pain Endocrine: No polyuria, No polydipsia Psychiatric: Prior psych history, No depression, Anxiety, No suicidal ideation, No homicidal ideation, Auditory hallucination, No visual hallucination Hematopoietic: No bruising, No lymphadenopathy Allergic/Immuno: No urticaria, No angioedema Neurological: No syncope, No focal symptoms, No weakness, No paresthesia, No headache, No seizure, No dizziness, Confusion, No vertigo ED Past Medical History - Past Medical History Obtainable: Yes Past Medical History: No significant medical hx, HTN, DM, CAD, Dyslipidemia, PUD /GERD, Dementia Family History: Heart disease, Diabetes Melitus, HTN Social History: Non Smoker, No Alcohol, No Drug Use, Single, Care Facility Surgical History: Pacemaker Psychiatricy History: Bipolar, Dementia Medication: Reviewed Family Medical History - Family Member Mother History Unknown: Yes Ethnicity: ED Physical Exam - Physical Examination General/Constitutional: Awake, Well-developed, well-nourished, Alert, No distress, GCS 15, Non-toxic appearing, Ambulatory Head: Atraumatic Eyes: Lids, conjuctiva normal, PERRL, EOMI Skin: Nl inspection, No rash, No skin lesions, No ecchymosis, Well hydrated, No lymphadenopathy ENMT: External ears, nose nl, TM canals nl, Nasal exam nl, Lips, teeth, gums nl , Oropharynx nl, Tonsils nl Neck: Nontender, Full ROM w/o pain, No JVD, No nuchal rigidity, No bruit, No mass, No stridor Respiratory: Nl effort/Exclusion, Clear to Auscultation, No Wheeze/Rhonchi/Rales Cardio Vascular: RRR, No murmur, gallop, rubs, NL S1 S2, Carotid/Femoral/Distal pulses equal bilaterally GI: No tenderness/rebounding/guarding, No organomegaly, No hernia, Normal BS's, Nondistended, No mass/bruits, No McBurney tenderness : No CVA tenderness Extremities: No tenderness or effusion, Full ROM, normal strength in all extremities, No edema, Normal digits & nails Neuro/Psych: Alert/oriented, DTR's symmetric, Normal sensory exam, Normal motor strength, Judgement/insight normal, Mood normal, Normal gait, No focal deficits Other Neuro/Psych comments:: Disoriented and Confused; + Psychomotor Agitation; no SIs; Mood/Affect: Stable Misc: Normal back, No paraspinal tenderness ED Labs/Radiology/EKG Results - Lab Results Comments:: Reviewed - EKG Interpretations EKG Time:: 14:09 Rate & Rhythm: 68; Pacemaker Rhythm Comments:: non-specific st-t changes ED Septic Shock - . Is Septic Shock (SBP<90, OR Lactate>4 mmol\L) present?: No ED Reassessment (Disposition) - Reassessment Reassessment Condition:: Improved - Diagnosis Diagnosis:: Agitation; Dementia; Medical Clearance; Psychosis; Hyperglycemia; DM; UTI; Bipolar Disorder - Aftercare/Follow up Instructions Aftercare/Follow-Up Instructions:: Counseled pt regarding lab results/diagnosis & need follow up, Counseled pt & family regarding lab results/diagnosis & need follow up - Patient Disposition Discharge/Transfer:: Acute Care w/in this hosp Admitted to:: [facility] Condition at Disposition:: Stable, Improved
[2017-10-27 14:47] LABS: % BASOPHILS 2.9 % (0.0-2.0); % EOSINOPHILS 1.3 % (0.0-5.0); % LYMPHOCYTES 17.8 % (20.0-50.0); BASOPHILE ABSOLUTE 0.3 Th/cumm (0-0.2); EOSINOPHILE ABSOLUTE 0.1 Th/cmm (0.1-0.4); HEMATOCRIT 44.9 % (41.0-60); LYMPHOCYTE ABSOLUTE 1.7 Th/cmm (1.5-3.0); MEAN CELL VOLUME 93.8 fl (80-99); MEAN CORPUSCULAR HEMOGLOBIN 31.2 pg (27.0-31.0); MEAN CORPUSCULAR HGB CONC 33.3 pg (28.0-36.0); MEAN PLATELET VOLUME 7.9 fl; MONOCYTE ABSOLUTE 0.5 Th/cmm (0.3-1.0); NEUTROPHILE ABSOLUTE 7.1 Th/cmm (1.8-8.0); PLATELET COUNT 254 Th/cmm (150-400); RED BLOOD COUNT 4.79 Mil/cmm (3.80-5.80); RED CELL DISTRIBUTION WIDTH 12.4 % (11.5-20.0); WHITE BLOOD COUNT 9.7 Th/cmm (4.8-10.8)
[2017-10-27 15:08] LABS: ACETAMINOPHEN < 10.0 ug/mL (10.0-30.0); ALB/GLOB RATIO 1.7 (1.0-1.8); ALBUMIN 4.1 gm/dL (4.2-5.5); ALKALINE PHOSPHATASE 54 U/L (34-104); ANION GAP 13.7 (7.0-16.0); BILIRUBIN,TOTAL 0.8 mg/dL (0.3-1.0); BUN - UREA NITROGEN 15 mg/dL (7-25); CALCIUM SERUM 8.9 mg/dL (8.6-10.3); CARBON DIOXIDE 22.1 mEq/L (21.0-31.0); CHLORIDE 102 mEq/L (98-107); CHOLESTEROL 90 mg/dL (<200); CREATININE - SERUM 0.8 mg/dL (0.7-1.3); GLUCOSE 260 mg/dL (70-105); HDL -HIGH DENSITY LIPOPROTEIN 32 mg/dL (23-92); POTASSIUM SERUM 4.8 mEq/L (3.5-5.1); SALICYLATES (ASPIRIN) < 25.0 mg/L (30.0-100.0); SGOT 12 U/L (13-39); SGPT/ALT 12 U/L (7-52); SODIUM SERUM 133 mEq/L (136-145); TOTAL PROTEIN,SERUM 6.5 gm/dL (6.0-8.3); TRIGLYCERIDES 143 mg/dL (<150)
[2017-10-27 15:31] LABS: URINE SOURCE CLEAN C
[2017-10-27 15:32] LABS: URINE BILIRUBIN NEGATIVE (NEGATIVE); URINE BLOOD NEGATIVE (NEGATIVE); URINE GLUCOSE (UA) 500 mg/dL (NEGATIVE); URINE KETONE TRACE mg/dL (NEGATIVE); URINE LEUKOCYTE ESTERASE SMALL (NEGATIVE); URINE MICROSCOPIC INDICATED? YES; URINE NITRATE NEGATIVE (NEGATIVE); URINE PH 5.5 (4.6 - 8.0); URINE PROTEIN NEGATIVE (NEGATIVE); URINE UROBILINOGEN 0.2 E.U./dL (0.2 - 1.0)
[2017-10-27 15:37] LABS: URINE CLARITY CLEAR (CLEAR); URINE COLOR YELLOW
[2017-10-27 15:48] LABS: AMPHETAMINE URINE NEGATIVE (NEGATIVE); BARBITURATES URINE NEGATIVE (NEGATIVE); BENZODIAZEPINES QUAL URINE POSITIVE (NEGATIVE); CANNABINOID THC NEGATIVE (NEGATIVE); COCAINE METABOLITE QUAL URINE NEGATIVE (NEGATIVE); METHADONE URINE NEGATIVE (NEGATIVE); METHAMPHETAMINES QUAL URINE NEGATIVE (NEGATIVE); OPIATES (MORPHINE) QUAL. URINE NEGATIVE (NEGATIVE); PHENCYCLIDINE (PCP) URINE NEGATIVE (NEGATIVE); TRICYCLICS (TCA) QUAL. URINE NEGATIVE (NEGATIVE)
[2017-10-27 15:49] LABS: URINE BACTERIA 1+ /hpf (NONE SEEN); URINE EPITHELIAL CELLS FEW /lpf (FEW); URINE RBC 0-2 /hpf (0-5)
[2017-10-27] MEDS ORDERED: Sulfamethoxazole/TMP 800/160mg Tab PO ONE (16:10)
[2017-10-27] MEDS ORDERED: Sulfamethoxazole/TMP 800/160mg Tab ONE (16:12)
[2017-10-27 17:28] VITALS: BP 152/58
[2017-10-27] MEDS ORDERED: cloNIDine 0.2 mg/24 hr Tdm TD SCH (17:45)
[2017-10-27 20:15] LABS: A1C % 7.5 % (4.0-6.0)
[2017-10-27] MEDS ORDERED: Non-Formulary Item 1 EA (Atorvastatin Calcium [Lipitor] 40 MG) PO SCH (21:00)
[2017-10-27] MEDS ORDERED: Non-Formulary Item 1 EA (Diclofenac Sodium [Voltaren] 2 GM) TP SCH (21:00)
[2017-10-27] MEDS: INSULIN ASPART SLIDING SCALE 100 UNITS/ML UNIT SUBQ SCH (21:46)
[2017-10-28] MEDS: INSULIN ASPART SLIDING SCALE 100 UNITS/ML UNIT SUBQ SCH ×4 (06:37→20:56)
[2017-10-28] MEDS: Lactulose 10 Gm/15 mL 30mL UDC PO SCH ×2 (08:37→17:07)
[2017-10-28] MEDS: Pantoprazole 40 mg EC Tab PO SCH (08:38)
[2017-10-28] MEDS ORDERED: Diclofenac 75 mg Tab PO SCH (09:00)
[2017-10-28] MEDS ORDERED: Non-Formulary Item 1 EA (Valsartan [Valsartan] 160 MG) PO SCH (09:00)
[2017-10-28] MEDS ORDERED: LIDOCAINE 15 GM TP SCH (09:00)
[2017-10-28] MEDS ORDERED: DICLOFENAC SODIUM 100 MG PO SCH (09:00)
[2017-10-28] MEDS: Escitalopram Oxalate 5 mg Tab PO SCH (20:54)
--- NOTE | 2017-10-28 22:06 | History & Physical ---
ADMIT DATE: 10/27/2017 INTERNAL MEDICINE CONSULTATION The patient is a patient of mine. PAST MEDICAL HISTORY: Significant for diabetes mellitus, diabetic angiopathy, neuropathy, nephropathy, COPD, hypertension, coronary artery disease, peptic ulcer disease, gastritis, arthritis, osteoporosis. SOCIAL HISTORY: Prior history of smoking. No history of drug or alcohol abuse. FAMILY HISTORY: Not available. REVIEW OF SYSTEMS: The patient has no chest pain, occasional cough, no nausea, no vomiting, no abdominal pain. Extensive arthritic pain. PHYSICAL EXAMINATION: GENERAL: Average male in no obvious respiratory distress. VITAL SIGNS: Include a blood pressure of 140/80, heart rate ____, respiration rate of 18. SKIN: Showed no obvious cellulitis. HEENT: Normal conjunctivae. NECK: Supple. LUNGS: Show occasional rhonchi, occasional crepitation, no bronchial breathing. HEART: First and second heart sounds normal. No gallop. Systolic present. ABDOMEN: Soft, minimal epigastric tenderness. Bowel sounds present and good. EXTREMITIES: Show arthritis. NEUROLOGIC: The patient has dementia. LABORATORY DATA: Reviewed. CURRENT MEDICAL DIAGNOSES: Include medical problems with diabetes mellitus, diabetic angiopathy, neuropathy, COPD, hypertension, coronary artery disease, peptic ulcer disease, gastritis, arthritis, osteoporosis. CURRENT MEDICATIONS: Include Voltaren, vitamin D3, Diovan, tramadol, Protonix, Naprosyn, Namenda, Lipitor, lactulose, sliding scale and glipizide, baby aspirin. [facility]# [id number]
--- NOTE | 2017-10-29 00:36 | Psychiatric Evaluation ---
DATE OF SERVICE: 10/28/2017 JUSTIFICATION FOR HOSPITALIZATION: Three days of agitation and aggressive behaviors. CHIEF COMPLAINT: "I am here for diabetes." HISTORY OF PRESENT ILLNESS: An 82-year-old male, confused on exam. AO to name, place, not situation, not year. Does not know why he is in the hospital, believes he is here for medical problems. Denying overt depression and anxiety, but angry, upset, restless, agitated, aggressive behaviors at the [facility]. Not a good historian. PAST PSYCHIATRIC HISTORY: Seems there is a history of bipolar, also dementia. PAST MEDICAL HISTORY: Hypertension, diabetes, CAD, and dyslipidemia. SOCIAL HISTORY: Born in [place]. He states he was . He states he has 4 children. No drinking, no smoking. MEDICATIONS: Noted including doses and frequencies. MENTAL STATUS EXAMINATION: Disheveled, unkempt, in a Cristina chair, restless, confused, disoriented. Mood "okay." Affect flat. Thought processes, these were disoriented. No SI, no HI, no overt psychotic symptoms. Insight poor. Judgment poor. Impulse control is poor. PROVISIONAL DIAGNOSES: Dementia per history, rule out bipolar; anxiety, unspecified; mood, unspecified. MEDICAL: Please see full H and P. ESTIMATED LENGTH OF STAY: 7-10 days. Pain, no distress noted. ASSESSMENT: The patient agitated, aggressive, very restless in a Cristina chair, needing constant redirection, cannot be cared for at a lower level of care. PLAN: We will continue to monitor. We will adjust and titrate medications. Again continue Lexapro, Aricept. Consider adding Namenda to his regimen and increasing Namenda as he is already on 10 mg daily. CONDITIONS FOR DISCHARGE: Improved mood, improved affect, better control of his mood symptoms and agitation. JOB# [id number]
--- NOTE | 2017-10-29 00:45 | Progress Notes ---
DATE: 10/28/2017 INTERNAL MEDICINE CONSULTATION FOLLOWUP The patient is an 82-year-old male. CURRENT MEDICAL PROBLEMS: Include diabetes mellitus type 2, angiopathy, neuropathy, nephropathy, hypertension, COPD, hyperlipidemia, coronary artery disease, peptic ulcer disease, gastritis, arthritis, osteoporosis, and enlarged prostate. CHIEF COMPLAINT: No new symptoms. Blood sugar is fairly stable. No vomiting, no diarrhea, no melena or hematochezia. OBJECTIVE: VITAL SIGNS: Stable. LUNGS: Show occasional rhonchi, occasional crepitation, no bronchial breathing. HEART: First and second heart sounds are normal. ABDOMEN: Soft, minimal epigastric tenderness. Bowel sounds present and good. EXTREMITIES: Show arthritis. NEUROLOGIC: The patient has dementia. MEDICAL DIAGNOSES: Include diabetes mellitus type 2, angiopathy, neuropathy, nephropathy, hypertension, COPD, hyperlipidemia, coronary artery disease, peptic ulcer disease, gastritis, arthritis, osteoporosis, and enlarged prostate. PLAN: Continue current medical management. Psych consult reviewed. JOB# [id number]
[2017-10-29] MEDS: INSULIN ASPART SLIDING SCALE 100 UNITS/ML UNIT SUBQ SCH ×4 (06:53→21:26)
[2017-10-29] MEDS: Lactulose 10 Gm/15 mL 30mL UDC PO SCH ×2 (09:40→17:11)
[2017-10-29] MEDS: Pantoprazole 40 mg EC Tab PO SCH (09:41)
--- NOTE | 2017-10-29 21:38 | Progress Notes ---
DATE: 10/29/[address] Esquivel. Case discussed with staff of the patient, reviewed records. This is an 82-year-old male who was admitted on the 10/27/2017, believing he is here for diabetes. He was agitated, aggressive, confused, oriented to name, place, but not to situation or year. He is not sure why he is in the hospital. He is here for his medical condition, feeling depressed, anxious, angry, upset, restless, agitated, aggressive in senior living facility with a history of bipolar disorder and dementia. The patient was started back on his medications and he is on Aricept 10 mg at bedtime, aspirin, atorvastatin, Calciferol, clonidine, diclofenac, Lexapro 2.5 mg at bedtime, glipizide, insulin, lactulose, Namenda 10 mg daily, Naprosyn, pantoprazole and Flomax for benign prostatic hypertrophy and Diovan for blood pressure. The patient continues to be confused, continues to be unable to participate in a meaningful conversation or make safe plan for self-care. Continues to be easily agitated, unpredictable and impulsive. No side effects with the medication, no sedation, no nausea, no extrapyramidal symptoms. We will continue the patient in group therapy, milieu therapy and adjust the medications as needed. JOB# [id number]
[2017-10-29] MEDS: Escitalopram Oxalate 5 mg Tab PO SCH (22:21)
--- NOTE | 2017-10-29 22:59 | Progress Notes ---
DATE: 10/29/2017 INTERNAL MEDICINE CONSULTATION FOLLOWUP SUBJECTIVE: The patient is an 82-year-old male. CURRENT MEDICAL PROBLEMS: Include diabetes mellitus, angiopathy, neuropathy, nephropathy, hypertension, COPD, coronary artery disease, peptic ulcer disease, gastritis, arthritis, enlarged prostate, and hyperlipidemia. CHIEF COMPLAINT: No chest pain. No short of breath. No nausea. No vomiting. OBJECTIVE: VITAL SIGNS: Stable. LUNGS: Shows bilateral rhonchi as well as crepitation, no bronchial breathing. HEART: First and second heart sounds normal. Systolic murmur present. ABDOMEN: Soft, no tenderness. Bowel sound is present and good. EXTREMITIES: Show arthritis. NEUROLOGIC: The patient had no obvious focal motor deficit. MEDICAL DIAGNOSES: As I dictated above. PLAN: Continue current medical management. Psych consult reviewed. JOB# [id number]
[2017-10-30] MEDS: INSULIN ASPART SLIDING SCALE 100 UNITS/ML UNIT SUBQ SCH ×4 (06:32→21:47)
[2017-10-30] MEDS: Pantoprazole 40 mg EC Tab PO SCH (09:11)
[2017-10-30] MEDS: Lactulose 10 Gm/15 mL 30mL UDC PO SCH ×2 (10:30→17:06)
[2017-10-30] MEDS: Escitalopram Oxalate 5 mg Tab PO SCH (21:43)
--- NOTE | 2017-10-30 21:51 | Progress Notes ---
DATE: 10/30/2017 INTERNAL MEDICINE CONSULTATION FOLLOWUP SUBJECTIVE: The patient is an 82-year-old male. CURRENT MEDICAL PROBLEMS: Include diabetes mellitus, hypertension, COPD, coronary artery disease, peptic ulcer disease, gastritis, enlarged prostate, hyperlipidemia. CHIEF COMPLAINT: No new symptoms. OBJECTIVE: VITAL SIGNS: Stable. LUNGS: Show occasional rhonchi, occasional crepitation, no bronchial breathing. HEART: First and second sounds normal. No gallops. S1, S2 are present. ABDOMEN: Soft. Bowel sounds are present and good. EXTREMITIES: Show arthritis. NEUROLOGIC: The patient has dementia. MEDICAL DIAGNOSES: As I dictated above. PLAN: Continue current medical management and psych consult reviewed. JOB# [id number]
--- NOTE | 2017-10-31 01:48 | Progress Notes ---
DATE: 10/30/2017 Case was discussed with staff of the patient, reviewed records. The patient continues to stay in bed. The staff report, they have not seen much change in his behavior. Continues to be unpredictable, impulsive, angry, hostile, easily upset, easily agitated, continues to have poor insight, unable to make safe plan for self-care and increasing his Lexapro dose to 5 mg to help improve his behavior and depression. We will continue outpatient group therapy, milieu therapy, adjust medication as needed. [facility]# [id number]
[2017-10-31] MEDS: INSULIN ASPART SLIDING SCALE 100 UNITS/ML UNIT SUBQ SCH ×4 (06:59→20:13)
[2017-10-31] MEDS: Lactulose 10 Gm/15 mL 30mL UDC PO SCH ×2 (08:46→16:38)
[2017-10-31] MEDS: Pantoprazole 40 mg EC Tab PO SCH (08:47)
[2017-10-31] MEDS: Escitalopram Oxalate 5 mg Tab PO SCH (20:14)
--- NOTE | 2017-10-31 21:58 | Progress Notes ---
DATE: 10/31/2017 Case was discussed with staff of the patient, reviewed records. The patient today was able to go to the dining room. However, he is irritable, confused, continues to be unable to make safe plan for self-care. Continues to be unpredictable, impulsive and needing redirection. Continues to look disheveled. He is tolerating increase in Lexapro with no side effects and we will continue outpatient group therapy, milieu therapy, and adjust the medications as needed. JOB# [id number]
[2017-11-01] MEDS: INSULIN ASPART SLIDING SCALE 100 UNITS/ML UNIT SUBQ SCH ×4 (06:43→21:12)
[2017-11-01] MEDS: Lactulose 10 Gm/15 mL 30mL UDC PO SCH ×2 (09:44→17:23)
[2017-11-01] MEDS: Pantoprazole 40 mg EC Tab PO SCH (09:45)
--- NOTE | 2017-11-01 17:44 | Progress Notes ---
DATE: 11/01/2017 DATE OF SERVICE: 11/01/2017 INTERNAL MEDICINE CONSULTATION FOLLOWUP. SUBJECTIVE: The patient is an 82-year-old male. CURRENT MEDICAL PROBLEMS: Include diabetes mellitus, diabetic angiopathy, neuropathy, hypertension, COPD, coronary artery disease, peptic ulcer disease, gastritis, arthritis, enlarged prostate, and hyperlipidemia. CHIEF COMPLAINT: No new symptoms. OBJECTIVE: VITAL SIGNS: Stable. LUNGS: Show occasional rhonchi, occasional crepitation, no bronchial breathing. HEART: First and second heart sounds normal. . ABDOMEN: Soft, bowel sounds present and good. EXTREMITIES: Show arthritis. NEUROLOGIC: The patient has dementia. MEDICAL DIAGNOSES: Remain the same. Continue current medical management. Psych consult reviewed. JOB# [id number]
--- NOTE | 2017-11-01 18:04 | Progress Notes ---
DATE: 11/01/2017 Case was discussed with staff of the patient, reviewed records. The patient is more visible now. He is in the dining room feeding himself. Continues however to be confused, continues to be unable to make safe plan for self-care, unpredictable, impulsive. He is tolerating increase in Lexapro ____ became more sociable and going out of his room. No side effects with the medication. No sedation. No nausea and we will continue the patient in group therapy, milieu therapy, and adjust the medications as needed. JOB# [id number]
[2017-11-01] MEDS: Escitalopram Oxalate 5 mg Tab PO SCH (21:12)
[2017-11-02] MEDS: INSULIN ASPART SLIDING SCALE 100 UNITS/ML UNIT SUBQ SCH ×4 (06:51→21:45)
[2017-11-02] MEDS: Pantoprazole 40 mg EC Tab PO SCH (09:43)
[2017-11-02] MEDS: Lactulose 10 Gm/15 mL 30mL UDC PO SCH ×2 (09:45→17:06)
[2017-11-02] MEDS: cloNIDine 0.2 mg/24 hr Tdm TD SCH (09:49)
[2017-11-02] MEDS: Escitalopram Oxalate 5 mg Tab PO SCH (21:10)
--- NOTE | 2017-11-02 23:09 | Progress Notes ---
DATE: 11/02/2017 SUBJECTIVE: The patient is mostly isolative, withdrawn. He states he is here for medical problems, confused, disoriented, complaining of some back pain at times, sexually inappropriate, exhibiting behaviors that are somewhat aggressive, agitated, still unruly. ASSESSMENT: The patient mumbling to self, anxious, and confused as to why he is here. Medications were noted. PLAN: We will continue to monitor. The patient remains disoriented. We will continue to adjust and titrate medications. [facility]# [id number]
--- NOTE | 2017-11-02 23:18 | Progress Notes ---
DATE: 11/02/2017 SUBJECTIVE: Mr. Harley Smart is an 82-year-old male with current medical history include diabetes mellitus, diabetic angiopathy, neuropathy, hypertension, COPD, coronary artery disease, peptic ulcer disease, arthritis, enlarged prostate, and hyperlipidemia. CHIEF COMPLAINT: Blood sugar stable. No new symptoms. OBJECTIVE: VITAL SIGNS: Stable. LUNGS: Show occasional rhonchi, occasional crepitation, no bronchial breathing. HEART: First and second heart sounds normal. No gallops. S1 and S2 present. ABDOMEN: Soft, bowel sounds present and good. EXTREMITIES: Show arthritis. NEUROLOGIC: The patient has dementia. MEDICAL DIAGNOSES: Remain the same. PLAN: Continue current medical management. Psych consult reviewed. JOB# [id number]
[2017-11-03] MEDS: INSULIN ASPART SLIDING SCALE 100 UNITS/ML UNIT SUBQ SCH ×3 (06:37→20:18)
[2017-11-03] MEDS: Pantoprazole 40 mg EC Tab PO SCH (08:57)
[2017-11-03] MEDS: Lactulose 10 Gm/15 mL 30mL UDC PO SCH ×2 (08:58→16:28)
--- NOTE | 2017-11-03 18:39 | Progress Notes ---
DATE: 11/03/2017 SUBJECTIVE: The patient is currently in the hospital, noted to be isolative, withdrawn, sexually inappropriate, wanting roommate to sleep in the bed with him, sexually inappropriate towards female staff. Noted to have bouts of confusion, forgetfulness, highly impulsive and unpredictable. Mood "okay." Resting comfortably on exam. ASSESSMENT: The patient impulsive, unpredictable, sexually inappropriate, forgetful, highly impulsive. PLAN: We will continue to monitor and titrate and adjust medications. Medications were reviewed and given his ongoing symptoms, he is not currently safe for discharge at this time. JOB# [id number]
--- NOTE | 2017-11-03 19:28 | Progress Notes ---
DATE: 11/03/2017 INTERNAL MEDICINE CONSULTATION FOLLOWUP HISTORY OF PRESENT ILLNESS: The patient is a 82-year-old male with past medical history significant for diabetes mellitus, hypertension, COPD, coronary artery disease, peptic ulcer disease, gastritis, arthritis, enlarged prostate, and hyperlipidemia. CHIEF COMPLAINT: No new symptoms. Blood sugar is stable. PHYSICAL EXAMINATION: VITAL SIGNS: Stable. LUNGS: Clear. HEART: First and second ____. ABDOMEN: Soft. Bowel sounds are good. EXTREMITIES: Show arthritis. NEUROLOGIC: The patient has dementia. MEDICAL DIAGNOSES: Remain the same. PLAN: Continue current medical management. Psych consult reviewed. JOB# [id number]
[2017-11-03] MEDS: Escitalopram Oxalate 5 mg Tab PO SCH (20:36)
[2017-11-04] MEDS: INSULIN ASPART SLIDING SCALE 100 UNITS/ML UNIT SUBQ SCH ×4 (06:35→21:20)
[2017-11-04] MEDS: Pantoprazole 40 mg EC Tab PO SCH (09:19)
[2017-11-04] MEDS: Lactulose 10 Gm/15 mL 30mL UDC PO SCH ×2 (09:20→16:51)
--- NOTE | 2017-11-04 17:21 | Progress Notes ---
DATE: 11/04/2017 HISTORY OF PRESENT ILLNESS: The patient is currently in the hospital, still hypersexual, very hypersexual, trying to get in the bed with his roommate and very inappropriate with female staff, still remains disoriented, forgetful at times, needing a lot of prompting, redirection, needing a high level of nursing care, incontinent, and wears diapers for example. Medications were noted including dosages and frequencies. Sleeping fairly well. Resting at this time, calm at this time. ASSESSMENT: The patient remains symptomatic, hypersexual, inappropriate, sexually aggressive at times. RECOMMENDATIONS AND PLAN: We will continue to monitor, titrate and adjust medications. The patient is not safe for a lower level of care. [facility]# [id number]
[2017-11-04] MEDS: Escitalopram Oxalate 5 mg Tab PO SCH (21:00)
--- NOTE | 2017-11-04 22:56 | Progress Notes ---
DATE: 11/04/2017 INTERNAL MEDICINE CONSULTATION FOLLOWUP SUBJECTIVE: The patient is an 82-year-old male with past medical history significant for diabetes mellitus, angiopathy, neuropathy, hypertension, COPD, coronary artery disease, peptic ulcer disease, gastritis, arthritis, enlarged prostate, and hyperlipidemia. CHIEF COMPLAINT: No new symptoms. OBJECTIVE: VITAL SIGNS: Stable. LUNGS: Clear. HEART: First and second sound is normal. ABDOMEN: Soft. Bowel sounds good. EXTREMITIES: Show arthritis. NEUROLOGIC: The patient has dementia. MEDICAL DIAGNOSES: Remain the same. PLAN: Continue current medical management and psych consult reviewed. JOB# [id number]
[2017-11-05] MEDS: INSULIN ASPART SLIDING SCALE 100 UNITS/ML UNIT SUBQ SCH ×4 (06:55→21:58)
[2017-11-05] MEDS: Pantoprazole 40 mg EC Tab PO SCH (09:07)
[2017-11-05] MEDS: Lactulose 10 Gm/15 mL 30mL UDC PO SCH ×2 (09:08→17:54)
--- NOTE | 2017-11-05 21:22 | Progress Notes ---
DATE: 11/05/2017 The patient remains symptomatic, confused, believes the year is 1936, mostly in his room, isolative, bouts of forgetfulness, isolation and withdrawn, still hypersexual at times, but less. Seems to be calming down, tolerant to treatment, requiring a higher level of redirection and prompting. ASSESSMENT: The patient remains symptomatic, sexually aggressive at times, trying to get into other patients' beds, sexually inappropriate towards female nursing staff, confused at this time. PLAN: We will continue to monitor, titrate and adjust medications. Given his ongoing symptoms, he is not safe for discharge. JOB# [id number]
[2017-11-05] MEDS: Escitalopram Oxalate 5 mg Tab PO SCH (21:56)
--- NOTE | 2017-11-05 23:42 | Progress Notes ---
DATE: 11/05/2017 INTERNAL MEDICINE CONSULTATION FOLLOWUP SUBJECTIVE: The patient is an 82-year-old male seen at [facility]. CURRENT MEDICAL PROBLEMS: Include diabetes mellitus type 2, angiography, neuropathy, nephropathy, hypertension, COPD, coronary artery disease, peptic ulcer disease, gastritis, arthritis, enlarged prostate, and hyperlipidemia. CHIEF COMPLAINT: Blood sugar is stable. No chest pain, no short of breath, no nausea, no vomiting. OBJECTIVE: VITAL SIGNS: Stable. LUNGS: Clear. HEART: First and second heart sounds normal. No gallops. Systolic present. ABDOMEN: Soft. Bowel sounds present and good. Kidneys are not palpable. EXTREMITIES: Show arthritis. NEUROLOGIC: The patient has no focal motor deficit. MEDICAL DIAGNOSES: Remain the same. PLAN: Continue current medical management. Psych consult reviewed. JOB# [id number]
[2017-11-06] MEDS: INSULIN ASPART SLIDING SCALE 100 UNITS/ML UNIT SUBQ SCH ×4 (06:58→20:56)
[2017-11-06] MEDS: Pantoprazole 40 mg EC Tab PO SCH (09:14)
[2017-11-06] MEDS: Lactulose 10 Gm/15 mL 30mL UDC PO SCH ×2 (09:37→18:00)
[2017-11-06] MEDS: Escitalopram Oxalate 5 mg Tab PO SCH (20:53)
--- NOTE | 2017-11-07 01:42 | Progress Notes ---
DATE: 11/06/2017 INTERNAL MEDICINE CONSULTATION FOLLOWUP The patient is an 82-year-old male. Current medical problems include diabetes mellitus, hypertension, COPD, coronary artery disease, ____, gastritis, arthritis, enlarged prostate, and hyperlipidemia. CHIEF COMPLAINT: No new symptoms. Blood sugar is stable. OBJECTIVE: VITAL SIGNS: Stable. LUNGS: Show occasional rhonchi, occasional crepitation. No bronchial breathing. HEART: First and second heart sounds normal. No gallop. Systolic present. ABDOMEN: Soft, bowel sounds good. EXTREMITIES: Show arthritis. NEUROLOGIC: The patient has dementia. MEDICAL DIAGNOSES: Remain the same. PLAN: Continue current medical management. Psych consult reviewed. JOB# [id number]
--- NOTE | 2017-11-07 01:46 | Progress Notes ---
DATE: 11/06/2017 SUBJECTIVE: An 82-year-old male, remains confused, does not know where he is or why he is here. He states he is "sick." Grabbed the nurse, still aggressive, unruly, impulsive, highly unpredictable, confused, disoriented, preoccupied by his own thoughts, still hypersexual. ASSESSMENT: The patient is withdrawn, depressed, ongoing agitation, and grabbed the nurse. PLAN: We will continue to monitor. I recently increased his Lexapro yesterday. No medication side effects. Medications were noted. JOB# [id number]
[2017-11-07] MEDS: INSULIN ASPART SLIDING SCALE 100 UNITS/ML UNIT SUBQ SCH ×4 (06:45→20:34)
[2017-11-07] MEDS: Pantoprazole 40 mg EC Tab PO SCH (09:27)
[2017-11-07] MEDS: Lactulose 10 Gm/15 mL 30mL UDC PO SCH ×2 (09:27→16:49)
--- NOTE | 2017-11-07 20:14 | Progress Notes ---
DATE: 11/07/2017 SUBJECTIVE: The patient in hospital, remains confused, states he is here because "he is sick," states he is in the hospital, still aggressive, grabbing at nurses, still hypersexual, unpredictable. On [id number], the patient tells me his name and where he is. He is not quite sure about the year, "I don't know." ASSESSMENT: The patient with an ongoing agitation and hypersexual behaviors, aggressive behaviors, particularly towards female nursing staff. PLAN: We will continue to monitor given recent dose changes and adjustments. We will monitor at current dose. JOB# [id number]
[2017-11-07] MEDS: Escitalopram Oxalate 5 mg Tab PO SCH (20:31)
--- NOTE | 2017-11-07 20:54 | Progress Notes ---
DATE: 11/07/2017 INTERNAL MEDICINE CONSULTATION FOLLOWUP The patient is an 82-year-old male. CURRENT MEDICAL PROBLEMS: Include diabetes mellitus type 2, angiopathy, neuropathy, hypertension, COPD, coronary artery disease, peptic ulcer disease, gastritis, arthritis, enlarged prostate, and hyperlipidemia. CURRENT CHIEF COMPLAINT: No new symptoms. Blood sugar stable. No vomiting, no diarrhea, no melena, no hematochezia. No recent fall. OBJECTIVE: VITAL SIGNS: Stable. LUNGS: Clear. HEART: First and second heart sounds normal. No gallop. Systolic present. ABDOMEN: Soft. Bowel sounds present. EXTREMITIES: Show arthritis. NEUROLOGIC: The patient has dementia. MEDICAL DIAGNOSES: Diabetes mellitus type 2, angiopathy, neuropathy, hypertension, COPD, coronary artery disease, peptic ulcer disease, gastritis, arthritis, enlarged prostate, and hyperlipidemia. PLAN: Continue current medical management. Psych consult reviewed. JOB# [id number]
[2017-11-08] MEDS: INSULIN ASPART SLIDING SCALE 100 UNITS/ML UNIT SUBQ SCH ×4 (06:55→21:02)
--- NOTE | 2017-11-08 07:22 | Progress Notes ---
DATE: 11/08/2017 SUBJECTIVE: The patient in the hospital, remains confused, does not know why he is here "I am sick." The patient is symptomatic, still hypersexual, grabbing at staff, not safe for discharge, impulsive, compulsive, mostly in his room, poor ADLs, isolates, withdrawn. Medications were noted. ASSESSMENT: The patient remains symptomatic, not safe for a lower level of care, still sexually inappropriate and aggressive towards staff. JOB# [id number]
[2017-11-08] MEDS: Pantoprazole 40 mg EC Tab PO SCH (09:20)
[2017-11-08] MEDS: Lactulose 10 Gm/15 mL 30mL UDC PO SCH ×2 (09:22→16:27)
--- NOTE | 2017-11-08 18:32 | Progress Notes ---
DATE: 11/08/2017 INTERNAL MEDICINE CONSULTATION FOLLOWUP The patient is an 82-year-old male. CURRENT MEDICAL PROBLEMS: Include diabetes mellitus, diabetic angiopathy, neuropathy, hypertension, COPD, coronary artery disease, peptic ulcer disease, gastritis, arthritis, enlarged prostate, and hyperlipidemia. CHIEF COMPLAINT: No new symptoms. PHYSICAL EXAMINATION: GENERAL: Blood sugar is stable. VITAL SIGNS: Vital signs are stable. LUNGS: Show occasional rhonchi, occasional crepitation. No bronchial breathing. HEART: First and second heart sounds normal. ____. ABDOMEN: Soft. Bowel sounds are good. EXTREMITIES: Show arthritis. NEUROLOGIC: The patient has dementia. MEDICAL DIAGNOSES: Diabetes mellitus, diabetic angiopathy, neuropathy, hypertension, COPD, coronary artery disease, peptic ulcer disease, gastritis, arthritis, enlarged prostate, and hyperlipidemia. PLAN: Continue current medical management. Continue psych management. JOB# [id number]
[2017-11-08] MEDS: Escitalopram Oxalate 5 mg Tab PO SCH (21:09)
[2017-11-09] MEDS: INSULIN ASPART SLIDING SCALE 100 UNITS/ML UNIT SUBQ SCH ×4 (06:31→20:58)
[2017-11-09] MEDS: cloNIDine 0.2 mg/24 hr Tdm TD SCH ×2 (08:54→09:21)
[2017-11-09] MEDS: Lactulose 10 Gm/15 mL 30mL UDC PO SCH ×2 (08:58→16:48)
[2017-11-09] MEDS: Pantoprazole 40 mg EC Tab PO SCH (08:59)
--- NOTE | 2017-11-09 10:55 | Progress Notes ---
DATE: 11/09/2017 INTERNAL MEDICINE CONSULTATION FOLLOWUP SUBJECTIVE: An 82-year-old male with past medical history significant for diabetes mellitus, diabetic angiopathy, hypertension, COPD, coronary artery disease, peptic ulcer disease, gastritis, enlarged prostate, hyperlipidemia. No new symptoms. OBJECTIVE: VITAL SIGNS: Stable. LUNGS: Show occasional rhonchi, occasional crepitation, no bronchial breathing. HEART: First and second heart sounds normal. No gallops. Systolic present. ABDOMEN: Soft. Bowel sounds present. EXTREMITIES: Show arthritis. NEUROLOGICAL: Dementia. PLAN: Continue current medical management. Psych consult reviewed. JOB# [id number]
--- NOTE | 2017-11-09 16:19 | Progress Notes ---
DATE: 11/09/2017 SUBJECTIVE: The patient was seen, remain sometimes unruly, confused, disoriented, ____ hypersexual. He seems to be calming down, not as aggressive towards female staff. He has been calmer, more cooperative. Staff noting some improvement. She remains isolative, withdrawn; however, tolerant of treatment. ASSESSMENT: The patient seems to be improving, calmer, more cooperative, less hypersexual, less inappropriate, following rules and directions. PLAN: We will continue to monitor, titrate and adjust medications. We will coordinate care with social work regarding safe discharge plan and good psychiatric followup. JOB# [id number]
[2017-11-09] MEDS: Escitalopram Oxalate 5 mg Tab PO SCH (21:02)
[2017-11-10] MEDS: INSULIN ASPART SLIDING SCALE 100 UNITS/ML UNIT SUBQ SCH ×4 (06:42→20:56)
[2017-11-10] MEDS: Pantoprazole 40 mg EC Tab PO SCH (09:19)
[2017-11-10] MEDS: Lactulose 10 Gm/15 mL 30mL UDC PO SCH ×2 (09:19→16:30)
[2017-11-10] MEDS: Escitalopram Oxalate 5 mg Tab PO SCH (20:50)
--- NOTE | 2017-11-11 01:27 | Progress Notes ---
DATE: 11/10/2017 SUBJECTIVE: The patient was seen on 11/10/2017. Still symptomatic, acting out behaviors, hypersexual, but less. Seems to be improving, calmer, remains confused, mostly in his room, isolative, withdrawn. Medications were noted. ASSESSMENT: The patient seems to be improving, calmer and less hypersexual, less impulsive, less compulsive. PLAN: We will continue to monitor, monitor for further 24 hours. Medications were noted. He seems to be tolerating current medication regimen. No EPS. No akathisia. No oversedation. JOB# [id number]
[2017-11-11] MEDS: INSULIN ASPART SLIDING SCALE 100 UNITS/ML UNIT SUBQ SCH ×2 (07:04→11:25)
[2017-11-11] MEDS: Pantoprazole 40 mg EC Tab PO SCH (08:40)
[2017-11-11] MEDS: Lactulose 10 Gm/15 mL 30mL UDC PO SCH (08:40)
--- NOTE | 2017-11-11 18:25 | Discharge Summary ---
DATE OF DISCHARGE: 11/11/2017 JUSTIFICATION FOR HOSPITALIZATION: Aggressive hypersexual behaviors. HISTORY OF PRESENT ILLNESS: An 82-year-old male, confused on exam. Poorly oriented, hypersexual, aggressive, agitated, poor historian, unruly behaviors, history of dementia. PAST MEDICAL HISTORY: Noted. SOCIAL HISTORY: Noted. MEDICATIONS: Noted. MENTAL STATUS EXAMINATION: Please see full psych eval for details. PROVISIONAL DIAGNOSES: Dementia per history. Rule out bipolar. Also, anxiety, unspecified; mood, unspecified. MEDICAL: Please see full H and P. HOSPITAL COURSE: After initial assessment, the patient was started on medications to address his behaviors, dementia with behavioral disturbances. Hypersexuality. Lexapro was titrated. Over the course of the hospitalization, he improved, mood improved, affect improved. He remained poorly oriented and confused, but no longer hypersexual. By 11/11/2017, he was seemingly improved sleeping well, eating well. No longer with any aggressive symptoms and was discharged. CONDITION UPON DISCHARGE: Improved. Fair ADLs, allowing ADLs, calm, cooperative, no SI, no HI. No agitation. Remained confused. Better impulse control. No psychotic symptoms. DISCHARGE DIAGNOSES: Dementia, dementia with behaviors; mood, unspecified; anxiety, unspecified. MEDICAL: Please see full H and P. PROGNOSIS: The patient follows up with outpatient mental health services and remains compliant with treatment. Prognosis will improve, otherwise guarded. JOB# [id number]
--- NOTE | 2017-11-11 23:50 | Progress Notes ---
DATE: 11/11/2017 INTERNAL MEDICINE CONSULTATION HISTORY OF PRESENT ILLNESS: The patient is an 82-year-old male with past medical history significant for diabetes mellitus, hypertension, COPD, coronary artery disease, peptic ulcer disease, gastritis, arthritis, enlarged prostate. CHIEF COMPLAINT: No new symptoms. Blood sugar is fairly stable. The patient is compliant with diet and medicine. PHYSICAL EXAMINATION: VITAL SIGNS: Stable. LUNGS: Show occasional rhonchi, occasional crepitation, no bronchial breathing. HEART: First and second heart sounds are normal. No gallop. Systolic present. ABDOMEN: Soft. Bowel sounds are good. EXTREMITIES: Show arthritis. NEUROLOGIC: The patient has no focal motor deficits. MEDICAL DIAGNOSES: Diabetes mellitus, hypertension, COPD, coronary artery disease, peptic ulcer disease, gastritis, arthritis, enlarged prostate. PLAN: Continue current medical management. Psych consult reviewed. JOB# [id number]
== END 2017-11-11 15:00 | DRG 884 ==
LOC: ER 13:48 → GERO2 16:21 → GERO 10-28 07:36
PROVIDERS: ADMIT Psychiatry & Neurology Psychiatry; ATTEND Psychiatry & Neurology Psychiatry
DX: F03.91 Unspecified dementia, unspecified severity, with behavioral disturbance (principal); N39.0 Urinary tract infection, site not specified; E11.65 Type 2 diabetes mellitus with hyperglycemia; F41.9 Anxiety disorder, unspecified; F39 Unspecified mood [affective] disorder; E11.40 Type 2 diabetes mellitus with diabetic neuropathy, unspecified; E11.51 Type 2 diabetes mellitus with diabetic peripheral angiopathy without gangrene; J44.9 Chronic obstructive pulmonary disease, unspecified; I10 Essential (primary) hypertension; I25.10 Atherosclerotic heart disease of native coronary artery without angina pectoris; K27.9 Peptic ulcer, site unspecified, unspecified as acute or chronic, without hemorrhage or perforation; M81.0 Age-related osteoporosis without current pathological fracture; E78.5 Hyperlipidemia, unspecified; K21.9 Gastro-esophageal reflux disease without esophagitis; F31.9 Bipolar disorder, unspecified; F29 Unspecified psychosis not due to a substance or known physiological condition; E11.21 Type 2 diabetes mellitus with diabetic nephropathy; K29.70 Gastritis, unspecified, without bleeding; M19.90 Unspecified osteoarthritis, unspecified site; N40.0 Benign prostatic hyperplasia without lower urinary tract symptoms; Z83.3 Family history of diabetes mellitus; Z95.0 Presence of cardiac pacemaker; Z82.49 Family history of ischemic heart disease and other diseases of the circulatory system
CPT/HCPCS: 36415-UA; 80053-TC; 80061-TC; 80307; 80320-TC; 80329-TC; 81001-TC; 82948-90; 83036-90; 84443-TC; 84484-TC; 85025-TC; 86592-TC; 93005; J1815; Z7610

== ENCOUNTER 2017-12-08 16:26 | Inpatient (IN) | payer MEDICARE ==
[2017-12-08 17:10] LABS: URINE SOURCE CLEAN C
--- NOTE | 2017-12-08 17:13 | ED Physician Chart ---
ED Chief Complaint/HPI - Patient Information Date Seen:: 12/08/17 Time Seen:: 17:07 Chief Complaint:: inappropriate sexual behaviour History of Present Illness:: 82 [facility] he was touching other pts private parts pt awake following some commands kazakh speaking mainly Allergies:: Allergies Allergy/AdvReac Type Severity Reaction Status Date / Time No Known Allergies Allergy Verified 12/08/17 16:39 Vitals:: Vital Signs - 8 hr 12/08/17 16:26 Temp 99.1 F HR 83 RR 18 BP 180/101 O2 Sat % 98 ED Review of Systems - Review of Systems General/Constitutional: No fever, No chills, No weight loss, No weakness, No diaphoresis, No edema, No loss of appetite Skin: No skin lesions, No rash, No bruising Head: No headache, No light-headedness Eyes: No loss of vision, No pain, No diplopia ENT: No earache, No nasal drainage, No sore throat, No tinnitus Neck: No neck pain, No swelling, No thyromegaly, No stiffness, No mass noted Cardio Vascular: No chest pain, No palpitations, No PND, No orthopnea, No edema Pulmonary: No SOB, No cough, No sputum, No wheezing GI: No nausea, No vomiting, No diarrhea, No pain, No melena, No hematochezia, No constipation, No hematemesis G/U: No dysuria, No frequency, No hematuria Musculoskeletal: No bone or joint pain, No back pain, No muscle pain Endocrine: No polyuria, No polydipsia Psychiatric: No prior psych history, No depression, No anxiety, No suicidal ideation Hematopoietic: No bruising, No lymphadenopathy Allergic/Immuno: No urticaria, No angioedema Neurological: No syncope, No focal symptoms, No weakness, No paresthesia, No headache, No seizure, No dizziness, No confusion, No vertigo ED Past Medical History - Past Medical History Past Medical History: HTN, DM, Asthma/COPD (anxiety), PUD/GERD, Dementia ( depression) Family Medical History - Family Member Mother History Unknown: Yes Ethnicity: Hx Family Hypertension: Yes Hx Family Diabetes: Yes ED Physical Exam - Physical Examination General/Constitutional: Awake, Well-developed, well-nourished, Alert, No distress, GCS 15, Non-toxic appearing, Ambulatory Head: Atraumatic Eyes: Lids, conjuctiva normal, PERRL, EOMI Skin: Nl inspection, No rash, No skin lesions, No ecchymosis, Well hydrated, No lymphadenopathy ENMT: External ears, nose nl, Nasal exam nl, Lips, teeth, gums nl Neck: Nontender, Full ROM w/o pain, No JVD, No nuchal rigidity, No bruit, No mass, No stridor Respiratory: Nl effort/Exclusion, Clear to Auscultation, No Wheeze/Rhonchi/Rales Cardio Vascular: RRR, No murmur, gallop, rubs, NL S1 S2 GI: No tenderness/rebounding/guarding, No organomegaly, No hernia, Normal BS's, Nondistended, No mass/bruits, No McBurney tenderness : No CVA tenderness Extremities: No tenderness or effusion, Full ROM, normal strength in all extremities, No edema, Normal digits & nails Neuro/Psych: Alert/oriented, DTR's symmetric, Normal sensory exam, Normal motor strength, Judgement/insight normal, Mood normal, Normal gait, No focal deficits Misc: Normal back, No paraspinal tenderness ED Assessment - Assessment General Assessment: dementia anxiety inappropriate behaviours ED Septic Shock - . Is Septic Shock (SBP<90, OR Lactate>4 mmol\L) present?: No - <6hrs of presentation: Vital Signs: Vital Signs - 8 hr 12/08/17 16:26 Temp 99.1 F HR 83 RR 18 BP 180/101 O2 Sat % 98 ED Reassessment (Disposition) - Reassessment Reassessment Condition:: Unchanged - Diagnosis Diagnosis:: dementia anxiety inappropriate sexual behaviour - Patient Disposition Discharge/Transfer:: Acute Care w/in this hosp Admitted to:: Med/Surg Condition at Disposition:: Stable
[2017-12-08 17:21] LABS: URINE BILIRUBIN NEGATIVE (NEGATIVE); URINE BLOOD LARGE (NEGATIVE); URINE GLUCOSE (UA) >=1000 mg/dL (NEGATIVE); URINE KETONE TRACE mg/dL (NEGATIVE); URINE LEUKOCYTE ESTERASE NEGATIVE (NEGATIVE); URINE MICROSCOPIC INDICATED? YES; URINE NITRATE NEGATIVE (NEGATIVE); URINE PROTEIN NEGATIVE (NEGATIVE)
[2017-12-08 17:36] LABS: URINE CLARITY HAZY (CLEAR); URINE COLOR YELLOW
[2017-12-08 17:40] LABS: % EOSINOPHILS 0.8 % (0.0-5.0); % LYMPHOCYTES 15.3 % (20.0-50.0); % MONOCYTES 6.1 % (2.0-10.0); % NEUTROPHILS 77.8 % (40.0-80.0); EOSINOPHILE ABSOLUTE 0.1 Th/cmm (0.1-0.4); HEMATOCRIT 44.4 % (41.0-60); HEMOGLOBIN 14.5 gm/dL (12-16); LYMPHOCYTE ABSOLUTE 1.5 Th/cmm (1.5-3.0); MEAN CELL VOLUME 93.1 fl (80-99); MEAN CORPUSCULAR HEMOGLOBIN 30.5 pg (27.0-31.0); MEAN CORPUSCULAR HGB CONC 32.7 pg (28.0-36.0); MEAN PLATELET VOLUME 7.7 fl; MONOCYTE ABSOLUTE 0.6 Th/cmm (0.3-1.0); NEUTROPHILE ABSOLUTE 7.4 Th/cmm (1.8-8.0); PLATELET COUNT 350 Th/cmm (150-400); RED BLOOD COUNT 4.77 Mil/cmm (3.80-5.80); RED CELL DISTRIBUTION WIDTH 14.1 % (11.5-20.0); WHITE BLOOD COUNT 9.6 Th/cmm (4.8-10.8)
[2017-12-08 17:41] LABS: URINE BACTERIA FEW /hpf (NONE SEEN); URINE EPITHELIAL CELLS FEW /lpf (FEW)
[2017-12-08 17:58] LABS: ALB/GLOB RATIO 1.5 (1.0-1.8); ALBUMIN 4.2 gm/dL (4.2-5.5); ALKALINE PHOSPHATASE 71 U/L (34-104); ANION GAP 15.7 (7.0-16.0); BILIRUBIN,TOTAL 1.5 mg/dL (0.3-1.0); BUN - UREA NITROGEN 13 mg/dL (7-25); CALCIUM SERUM 9.5 mg/dL (8.6-10.3); CARBON DIOXIDE 21.4 mEq/L (21.0-31.0); CHLORIDE 96 mEq/L (98-107); CREATININE - SERUM 0.8 mg/dL (0.7-1.3); GLUCOSE 337 mg/dL (70-105); POTASSIUM SERUM 4.1 mEq/L (3.5-5.1); SGOT 14 U/L (13-39); SGPT/ALT 19 U/L (7-52); SODIUM SERUM 129 mEq/L (136-145)
[2017-12-08] MEDS ORDERED: INSULIN HUMAN REGULAR 100 UNITS/ML UNIT SUBQ ONE (18:30)
[2017-12-08] MEDS ORDERED: Sodium Chloride 0.9% 500 ML IV ONE (18:31)
[2017-12-08] MEDS ORDERED: INSULIN HUMAN REGULAR 100 UNITS/ML UNIT ONE (18:41)
[2017-12-08 21:07] VITALS: BP 146/62
[2017-12-08] MEDS ORDERED: Magnesium Hydroxide (MOM) 30 mL UDC PO PRN (21:25)
[2017-12-08] MEDS ORDERED: Maalox 30 mL Cup PO PRN (21:25)
[2017-12-09] MEDS: Escitalopram Oxalate 5 mg Tab PO SCH ×2 (03:44→20:43)
[2017-12-09] MEDS: INSULIN ASPART SLIDING SCALE 100 UNITS/ML UNIT SUBQ SCH ×4 (06:46→20:56)
[2017-12-09] MEDS: Pantoprazole 40 mg EC Tab PO SCH (06:49)
[2017-12-09 06:59] LABS: CHOLESTEROL 104 mg/dL (<200); HDL -HIGH DENSITY LIPOPROTEIN 46 mg/dL (23-92); TRIGLYCERIDES 85 mg/dL (<150)
--- NOTE | 2017-12-09 07:57 | Diagnostic Imaging Report ---
Portable chest x-ray HISTORY: Shortness of breath Allowing for portable technique and a poor inspiration, the heart size is normal. Cardiac pacemaker lead wires project over the right atrium and right ventricle. No focal pulmonary processes. IMPRESSION: 1. No acute abnormalities 2. Cardiac pacemaker placement
[2017-12-09] MEDS: Lactulose 10 Gm/15 mL 30mL UDC PO SCH ×2 (09:39→16:43)
[2017-12-09] MEDS: Multivitamin Tab PO SCH (09:40)
--- NOTE | 2017-12-09 20:26 | Psychiatric Evaluation ---
DATE OF SERVICE: 12/09/2017 JUSTIFICATION FOR HOSPITALIZATION: Agitation at the [facility]. CHIEF COMPLAINT: Not answering. HISTORY OF PRESENT ILLNESS: An 82-year-old male, confused on exam. Not answering any questions. Apparently unruly, agitated, could not be controlled at the nursing facility, restless, aggressive behaviors. PAST PSYCHIATRIC HISTORY: It seems he has history of bipolar. Also, dementia. He has been to the [facility] in the past. PAST MEDICAL HISTORY: Hypertension, diabetes, CAD, dyslipidemia. SOCIAL HISTORY: Per previous notes born in [place]. Apparently, he has been , 4 children. No drinking, no smoking. MEDICATIONS: Reviewed. MENTAL STATUS EXAMINATION: Disheveled, unkempt, in bed, lying down, not answering any questions, sleeping, but arousable, opens his eyes, closes them, refusing to speak with me, unclear SI or HI, unclear psychotic symptoms, very poor impulse control. PROVISIONAL DIAGNOSES: Dementia, rule out bipolar. Also, anxiety, unspecified; mood, unspecified; psychosis, unspecified, dementia with behavioral disturbances. MEDICAL: Please see full H and P. ESTIMATED LENGTH OF STAY: 5-7 days. ASSESSMENT: The patient is aggressive, not safe for a lower level of care, could not be controlled at [facility]. He was apparently also admitted due to inappropriate sexual behaviors toward other residents at the shelter. Poorly oriented, confused, not safe for a lower level of care. Somewhat unruly at the [facility]. PLAN: We will continue to monitor, titrate and adjust medications. TREATMENT PLAN: Includes group as well as milieu therapy. CONDITIONS FOR DISCHARGE: Improved mood, improved affect, better control of his agitation, sexually inappropriate behaviors. JOB# [id number]
--- NOTE | 2017-12-09 22:37 | History & Physical ---
ADMIT DATE: 12/08/2017 INTERNAL MEDICINE CONSULTATION The patient is an 82-year-old male. I am the primary care physician. CURRENT MEDICAL PROBLEMS: Include diabetes mellitus, angiopathy, neuropathy, nephropathy, hypertension, coronary artery disease, hyperlipidemia, enlarged prostate, peptic ulcer disease, gastritis, arthritis, anemia, and chronic kidney disease. SOCIAL HISTORY: No history of smoking, alcohol abuse. FAMILY HISTORY: Not available. REVIEW OF SYSTEMS: The patient had no chest pain or short of breath. No nausea, no vomiting, abdominal pain or urinary symptoms. Gait is unstable. PHYSICAL EXAMINATION: GENERAL: Average male in obvious respiratory distress. VITAL SIGNS: Include a blood pressure of 140/80, heart rate 80, respiration rate of 18. SKIN: Show no cellulitis. HEENT: Normal conjunctivae. NECK: Supple. LUNGS: Clear, bilateral good entry. HEART: First and second heart sounds are normal. No gallops. Systolic present. ABDOMEN: Soft, minimal epigastric tenderness. Bowel sounds present and good. EXTREMITIES: Show arthritis. NEUROLOGIC: The patient has no focal motor deficit. LABORATORY DATA: Include white count 9.6, hemoglobin 14.5, hematocrit 44.4, platelet count of 350. Sodium 129, potassium 4.1, chloride 96, bicarbonate 21.4, BUN 13, creatinine 0.8, blood sugar 337. CURRENT MEDICATIONS: Include Tylenol, Maalox, Ecotrin, Lipitor, vitamin D3, Catapres, Voltaren gel, Aricept, Lexapro, sliding scale, Glucotrol 5 mg twice a day, which I will increase to 10 mg twice a day. The patient will have sodium supplementation. The patient on losartan 100 mg daily, Naprosyn and Namenda and Flomax and Ultram. JOB# [id number]
--- NOTE | 2017-12-09 22:59 | Progress Notes ---
DATE: 12/09/2017 INTERNAL MEDICINE CONSULTATION The patient is an 82-year-old male seen at [facility]. CURRENT MEDICAL PROBLEMS: Include diabetes mellitus, diabetic angiopathy, neuropathy, nephropathy, hypertension, coronary artery disease, hyperlipidemia, enlarged prostate, peptic ulcer disease, gastritis, arthritis, hyponatremia and possible UTI. SYMPTOMS: No chest pain, no short of breath, no nausea, no vomiting. The patient does have some hesitancy urine. Gait is unstable. No recent fall. OBJECTIVE: VITAL SIGNS: Stable. LUNGS: Clear. HEART: First and second heart sounds are normal. No gallops. Systolic present. ABDOMEN: Soft, minimal epigastric tenderness. Bowel sounds are good. EXTREMITIES: Show arthritis. NEUROLOGIC: The patient has dementia. TREATMENT PLAN: I will increase Glucotrol from 5 mg to 10 mg twice a day. The patient will have additional Levaquin. Rest of medicines as per MAY. PROGNOSIS: Fair to guarded. Psych consult reviewed. JOB# [id number]
[2017-12-10] MEDS: INSULIN ASPART SLIDING SCALE 100 UNITS/ML UNIT SUBQ SCH ×4 (06:42→20:20)
[2017-12-10] MEDS: Pantoprazole 40 mg EC Tab PO SCH (06:42)
[2017-12-10] MEDS: Multivitamin Tab PO SCH (09:47)
[2017-12-10] MEDS: Lactulose 10 Gm/15 mL 30mL UDC PO SCH ×2 (09:48→17:35)
--- NOTE | 2017-12-10 13:18 | Progress Notes ---
DATE: 12/10/2017 Case was discussed with staff of the patient, reviewed records. Covering for Dr. Esquivel. This is an 82-year-old male who was admitted on the 11/21/2017. He came from [facility]. He was agitated. He is 82 years of age. He is unable to answer questions. He was also acting ____ with the staff hard to redirect, acting aggressive with a history of bipolar disorder, dementia as being at this facility in the past, also with hypertension, diabetes, coronary artery disease, and dyslipidemia. The patient continues to be unpredictable, impulsive, and needing redirection. He was restarted on his medication by Dr. Esquivel Aricept 10 mg at bedtime, Lexapro 5 mg daily, memantine 10 mg daily with no side effects, no sedation, no nausea. We will continue the patient in group therapy, milieu therapy, and adjust medications as needed. JOB# [id number]
[2017-12-10] MEDS: Escitalopram Oxalate 5 mg Tab PO SCH (20:19)
--- NOTE | 2017-12-10 21:25 | Progress Notes ---
DATE: 12/10/2017 SUBJECTIVE: The patient is an 82-year-old male with past medical history significant for hypertension, hyperlipidemia, coronary artery disease, diabetes mellitus, diabetic angiopathy, neuropathy, nephropathy, enlarged prostate, peptic ulcer disease, arthritis, and hyponatremia. Currently, the patient received antibiotic for UTI. LABORATORY DATA: PSA is 8 today. PHYSICAL EXAMINATION: VITAL SIGNS: Stable. LUNGS: Clear. HEART: First and second heart sounds normal. No gallops. S1, S2 present. ABDOMEN: Soft, bowel sounds present. EXTREMITIES: Show arthritis. NEUROLOGIC: The patient has dementia. FINAL DIAGNOSES: As dictated above. PLAN: For high PSA, we will get a Urology consultation as an outpatient. JOB# [id number]
[2017-12-11] MEDS: INSULIN ASPART SLIDING SCALE 100 UNITS/ML UNIT SUBQ SCH ×4 (06:36→20:06)
[2017-12-11] MEDS: Pantoprazole 40 mg EC Tab PO SCH (06:37)
[2017-12-11] MEDS: Lactulose 10 Gm/15 mL 30mL UDC PO SCH ×2 (08:24→16:46)
[2017-12-11] MEDS: Multivitamin Tab PO SCH (08:25)
[2017-12-11] MEDS: Escitalopram Oxalate 5 mg Tab PO SCH (20:07)
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
[2017-12-12] MEDS: INSULIN ASPART SLIDING SCALE 100 UNITS/ML UNIT SUBQ SCH ×4 (06:39→21:27)
[2017-12-12] MEDS: Pantoprazole 40 mg EC Tab PO SCH (06:39)
--- NOTE | 2017-12-12 08:26 | Progress Notes ---
DATE: 12/12/2017 INTERNAL MEDICINE CONSULTATION FOLLOWUP SUBJECTIVE: The patient is an 82-year-old male. CURRENT MEDICAL PROBLEMS: Include hyperlipidemia, hypertension, coronary artery disease, diabetes mellitus, diabetic angiopathy, neuropathy, enlarged prostate, peptic ulcer disease, arthritis and UTI. CHIEF COMPLAINT: No new symptoms. No chest pain, no shortness of breath, no nausea, no vomiting. Gait is unstable. No fall. OBJECTIVE: VITAL SIGNS: Stable. LUNGS: Clear. HEART: First and second heart sounds are normal. No gallop. Systolic present. ABDOMEN: Soft. Kidneys are not palpable. EXTREMITIES: Show arthritis. NEUROLOGIC: The patient has dementia. MEDICAL DIAGNOSES: Remain the same. PLAN: Continue current medical management. Psych consult reviewed. JOB# [id number]
--- NOTE | 2017-12-12 10:03 | Progress Notes ---
DATE: Dr. East covering for Dr. Esquivel. SUBJECTIVE: Chart reviewed and the patient interviewed. Also discussed the patient's condition with the staff and reviewed records and labs. The patient is less irritable and less agitated. The patient also is slightly easier to redirect him, but he still needs lots of redirections. Also, still have episodes of anger and irritability. Otherwise, the patient is compliant with taking his medications and he denies any side effects of medications. ASSESSMENT: The patient is still irritable and agitated and needs close monitoring. TREATMENT PLAN: Continue to monitor his behavior and his condition closely. Also, continue to work on his ineffective coping and his irritability. JOB# [id number]
[2017-12-12] MEDS: Lactulose 10 Gm/15 mL 30mL UDC PO SCH ×2 (10:06→16:30)
[2017-12-12] MEDS: Multivitamin Tab PO SCH (10:08)
[2017-12-12] MEDS: Escitalopram Oxalate 5 mg Tab PO SCH (21:26)
[2017-12-13] MEDS: INSULIN ASPART SLIDING SCALE 100 UNITS/ML UNIT SUBQ SCH ×4 (06:35→21:27)
[2017-12-13] MEDS: Pantoprazole 40 mg EC Tab PO SCH (06:36)
--- NOTE | 2017-12-13 07:03 | Progress Notes ---
DATE: 12/13/2017 INTERNAL MEDICINE CONSULTATION FOLLOWUP SUBJECTIVE: The patient is an 82-year-[facility]. CURRENT MEDICAL PROBLEMS: Include diabetes mellitus, angiopathy, neuropathy, nephropathy, hypertension, coronary artery disease, hyperlipidemia, enlarged prostate, peptic ulcer disease, gastritis, arthritis. The patient also is being treated for UTI and hyponatremia. OBJECTIVE: VITAL SIGNS: Stable. LUNGS: Clear. HEART: First and second heart sounds normal. No gallop. Systolic present. ABDOMEN: Soft. Bowel sounds present and good. EXTREMITIES: Show arthritis. NEUROLOGIC: The patient has no additional deficits. MEDICAL DIAGNOSIS: Remains same. PLAN: Continue current medical treatments. Psych consult reviewed. JOB# [id number]
[2017-12-13] MEDS: Multivitamin Tab PO SCH (08:28)
[2017-12-13] MEDS: Lactulose 10 Gm/15 mL 30mL UDC PO SCH ×2 (08:30→16:46)
--- NOTE | 2017-12-13 09:21 | Progress Notes ---
DATE: 12/13/2017 INTERNAL MEDICINE CONSULTATION FOLLOWUP SUBJECTIVE: The patient is an 82-year-old male. CURRENT MEDICAL PROBLEMS: Include hypertension, diabetes mellitus, coronary artery disease, hyperlipidemia, diabetic angiopathy, neuropathy, nephropathy, enlarged prostate, peptic ulcer disease, gastritis, arthritis. The patient also being treated for hip. DICTATION ENDS HERE JOB# [id number]
[2017-12-13] MEDS: Escitalopram Oxalate 5 mg Tab PO SCH (20:43)
--- NOTE | 2017-12-14 01:46 | Progress Notes ---
DATE: 12/13/2017 Chart reviewed and the patient interviewed. Also, discussed the patient's condition with the staff and reviewed records and labs. The patient is less irritable and less agitated. The patient also is interacting more. The patient still seems to at times to be disoriented and his behavior is unpredictable. Also, unsteady gait. On the other hand, the patient continued to comply with taking his medications with no side effects of medications. ASSESSMENT: The patient is still confused but less agitated. TREATMENT PLAN: Continue to monitor his behavior and his condition and continue adjusting psychotropic medications and also monitor behavioral modification. JOB# [id number]
[2017-12-14] MEDS: INSULIN ASPART SLIDING SCALE 100 UNITS/ML UNIT SUBQ SCH ×4 (06:40→20:23)
[2017-12-14] MEDS: Pantoprazole 40 mg EC Tab PO SCH (06:40)
[2017-12-14] MEDS: Multivitamin Tab PO SCH (08:45)
[2017-12-14] MEDS: Lactulose 10 Gm/15 mL 30mL UDC PO SCH ×2 (08:46→16:06)
[2017-12-14] MEDS ORDERED: cloNIDine 0.2 mg/24 hr Tdm TD SCH (09:00)
[2017-12-14] MEDS: Escitalopram Oxalate 5 mg Tab PO SCH (20:22)
[2017-12-15] MEDS: Pantoprazole 40 mg EC Tab PO SCH (06:45)
[2017-12-15] MEDS: INSULIN ASPART SLIDING SCALE 100 UNITS/ML UNIT SUBQ SCH ×4 (06:45→20:55)
[2017-12-15] MEDS: Multivitamin Tab PO SCH (08:32)
[2017-12-15] MEDS: Lactulose 10 Gm/15 mL 30mL UDC PO SCH ×2 (08:34→16:47)
--- NOTE | 2017-12-15 10:30 | Progress Notes ---
DATE: 12/14/2017 INTERNAL MEDICINE CONSULTATION FOLLOWUP SUBJECTIVE: The patient is an 82-year-old male. CURRENT MEDICAL PROBLEMS: Include diabetes mellitus, hypertension, coronary artery disease, hyperlipidemia, enlarged prostate, peptic ulcer disease, gastritis, arthritis, and treating for UTI. OBJECTIVE: VITAL SIGNS: Stable. No new symptoms. LUNGS: Clear. HEART: First and second heart sounds normal. No gallop. Systolic present. ABDOMEN: Soft. Bowel sounds present. EXTREMITIES: Show arthritis. NEUROLOGIC: The patient has no focal motor deficit. PLAN: Continue current medical management. Psych consult reviewed. JOB# [id number]
--- NOTE | 2017-12-15 17:19 | Progress Notes ---
DATE: 12/14/2017 SUBJECTIVE: The patient states that he is feeling "bad" this morning. He knows he is in the hospital. He has no idea why he is in the hospital. He just alludes to feeling nervous, anxious. The patient was apparently quite aggressive. The patient states that he lives at home in [place] with his daughter, in fact he is coming from a custodial. He was unruly, combative, agitated, uncontrollable. The patient alludes to having a sore back. ASSESSMENT: The patient is isolative, withdrawn, highly impulsive, unpredictable, ongoing behavioral disturbances, not safe for lower level of care. PLAN: We will continue to monitor, medications were reviewed. Given ongoing symptoms, he still presents as an acute safety risk. JOB# [id number]
--- NOTE | 2017-12-15 19:40 | Progress Notes ---
DATE: 12/15/2017 The patient stating he is here for fighting. Noted to be irritable, agitated, highly unpredictable, impulsive, mostly withdrawn, still sexually inappropriate, withdrawn, impulsive, unpredictable, AO to name only, not really talking to me whatsoever. Apparently, there is a daughter involved who recently had surgery herself. ASSESSMENT: The patient is here for fighting, combative behaviors, hypersexuality. The patient is not safe for a lower level of care. PLAN: We will continue to monitor and follow up. [facility]# [id number]
[2017-12-15] MEDS: Escitalopram Oxalate 5 mg Tab PO SCH (20:00)
--- NOTE | 2017-12-16 00:30 | Progress Notes ---
DATE: 12/15/2017 INTERNAL MEDICINE CONSULTATION FOLLOWUP HISTORY OF PRESENT ILLNESS: The patient's current medical problems include diabetes mellitus, hypertension, coronary artery disease, enlarged prostate, peptic ulcer disease, gastritis, arthritis, UTI, and hyperlipidemia. No new symptoms. OBJECTIVE: VITAL SIGNS: Stable. LUNGS: Clear. HEART: First and second heart sounds normal. No gallop. Systolic murmur present. ABDOMEN: Soft. No CVA tenderness. Kidneys are not palpable. EXTREMITIES: Show arthritis. NEUROLOGIC: The patient has dementia. CURRENT DIAGNOSIS: Remains same. PLAN: Continue current medical management. Psych consult reviewed. JOB# [id number]
[2017-12-16] MEDS: INSULIN ASPART SLIDING SCALE 100 UNITS/ML UNIT SUBQ SCH ×4 (06:34→21:09)
[2017-12-16] MEDS: Pantoprazole 40 mg EC Tab PO SCH (06:35)
[2017-12-16] MEDS: Multivitamin Tab PO SCH (08:22)
[2017-12-16] MEDS: Lactulose 10 Gm/15 mL 30mL UDC PO SCH ×2 (08:22→16:25)
[2017-12-16 09:43] LABS: ALB/GLOB RATIO 1.6 (1.0-1.8); ALKALINE PHOSPHATASE 64 U/L (34-104); ANION GAP 12.1 (7.0-16.0); BILIRUBIN,TOTAL 1.5 mg/dL (0.3-1.0); BUN - UREA NITROGEN 7 mg/dL (7-25); CALCIUM SERUM 9.1 mg/dL (8.6-10.3); CHLORIDE 99 mEq/L (98-107); CREATININE - SERUM 0.6 mg/dL (0.7-1.3); GLUCOSE 170 mg/dL (70-105); POTASSIUM SERUM 3.1 mEq/L (3.5-5.1); SGOT 15 U/L (13-39); SGPT/ALT 18 U/L (7-52); TOTAL PROTEIN,SERUM 6.5 gm/dL (6.0-8.3)
[2017-12-16 10:07] LABS: SODIUM SERUM 135 mEq/L (136-145)
[2017-12-16] MEDS: Potassium Chloride 20 mEq ER Tab PO SCH (11:03)
--- NOTE | 2017-12-16 20:43 | Progress Notes ---
DATE: 12/16/2017 SUBJECTIVE: The patient rambling on exam, sometimes aggressive, sexually inappropriate, at times with angry outbursts, yelling, restless, anxious, angry at times. The patient has been accepted to [facility], but remains sexually inappropriate, ongoing symptoms, confusion. He is taking his medications. No side effects. Medications were reviewed. ASSESSMENT: The patient unruly, still sexually inappropriate, not safe for a lower level of care, highly impulsive and unpredictable. PLAN: We will continue to monitor. We will attempt to stabilize the patient further. JOB# [id number]
[2017-12-16] MEDS: Escitalopram Oxalate 5 mg Tab PO SCH (21:07)
[2017-12-17] MEDS: INSULIN ASPART SLIDING SCALE 100 UNITS/ML UNIT SUBQ SCH ×4 (06:41→21:03)
[2017-12-17] MEDS: Pantoprazole 40 mg EC Tab PO SCH (06:48)
[2017-12-17] MEDS: Lactulose 10 Gm/15 mL 30mL UDC PO SCH ×2 (09:01→16:26)
[2017-12-17] MEDS: Potassium Chloride 20 mEq ER Tab PO SCH (10:00)
[2017-12-17] MEDS: Multivitamin Tab PO SCH (10:00)
--- NOTE | 2017-12-17 18:29 | Progress Notes ---
DATE: 12/17/2017 INTERNAL MEDICINE CONSULTATION HISTORY OF PRESENT ILLNESS: The patient's medical problems include hypertension, diabetes mellitus, diabetic angiopathy, neuropathy, nephropathy, coronary artery disease, enlarged prostate, peptic ulcer disease, arthritis, and hyponatremia. The patient also receiving treatment for UTI symptoms. No new symptoms. No vomiting, no diarrhea, no melena, no hematochezia. OBJECTIVE: VITAL SIGNS: Stable. LUNGS: Clear. HEART: First and second heart sounds normal. No gallop. Systolic murmur present. ABDOMEN: Soft. Bowel sounds are present and good. EXTREMITIES: Show arthritis. NEUROLOGIC: The patient has no focal deficit. MEDICAL DIAGNOSES: Remain the same. PLAN: Continue current medical management. Psych consult reviewed. JOB# [id number]
[2017-12-17] MEDS: Escitalopram Oxalate 5 mg Tab PO SCH (21:02)
--- NOTE | 2017-12-17 23:19 | Progress Notes ---
DATE: Dr. East covering for Dr. Esquivel. SUBJECTIVE: Chart reviewed and the patient interviewed. Also discussed the patient's condition with the staff and reviewed records and labs. Staff reports the patient is still having sexual inappropriate behavior. The patient also still has episodes of yelling and screaming and out of anger. Also, is still restless and pacing and needs a lot of redirections, but he gets aggressive when staff tries to redirect him. The patient also is still having episodes of confusion. On the other hand, the patient is compliant with taking his medications with no side effects of medications. ASSESSMENT: The patient is still psychotic and agitated with sexual inappropriate behavior. TREATMENT PLAN: Continue monitoring his behavior and his condition closely and continue adjusting psychotropic medications and follow up closely. JOB# [id number]
[2017-12-18] MEDS: Pantoprazole 40 mg EC Tab PO SCH (06:37)
[2017-12-18] MEDS: INSULIN ASPART SLIDING SCALE 100 UNITS/ML UNIT SUBQ SCH ×4 (06:37→21:05)
--- NOTE | 2017-12-18 07:07 | Progress Notes ---
DATE: SUBJECTIVE: Chart reviewed and the patient interviewed. Also discussed the patient's condition with the staff and reviewed records and labs. The patient is calm and he is more cooperative, but still needs redirections. The patient also is still anxious and at times seems to be depressed. The patient also is still at times restless and confused. Otherwise, the patient is compliant with taking his medications with no side effects. ASSESSMENT: The patient is still depressed. TREATMENT PLAN: Continue monitoring his behavior and his condition closely. Also, we will continue working on ineffective coping and continue to follow up. JOB# [id number]
[2017-12-18] MEDS: Lactulose 10 Gm/15 mL 30mL UDC PO SCH ×2 (09:29→17:17)
[2017-12-18] MEDS: Multivitamin Tab PO SCH (09:30)
--- NOTE | 2017-12-18 12:00 | Progress Notes ---
DATE: 12/18/2017 INTERNAL MEDICINE CONSULTATION FOLLOWUP The patient is an 82-year-old male. Current medical problems include diabetes mellitus, hypertension, COPD, coronary artery disease, peptic ulcer disease, gastritis, arthritis, enlarged prostate, and hyperlipidemia. CHIEF COMPLAINT: No new symptoms. OBJECTIVE: VITAL SIGNS: Stable. LUNGS: Show bilateral rhonchi as well as crepitation. No bronchial breathing. HEART: First and second heart sounds normal. No gallop. Systolic present. ABDOMEN: Soft. Bowel sounds present and good. EXTREMITIES: Show arthritis. NEUROLOGIC: The patient has dementia. ASSESSMENT AND PLAN: Continue current medical management. Psych consult reviewed. JOB# [id number]
[2017-12-18] MEDS: Escitalopram Oxalate 5 mg Tab PO SCH (21:03)
[2017-12-19] MEDS: INSULIN ASPART SLIDING SCALE 100 UNITS/ML UNIT SUBQ SCH ×4 (06:34→20:30)
[2017-12-19] MEDS: Pantoprazole 40 mg EC Tab PO SCH (06:48)
[2017-12-19] MEDS: Lactulose 10 Gm/15 mL 30mL UDC PO SCH ×2 (08:13→17:40)
[2017-12-19] MEDS: Multivitamin Tab PO SCH (08:14)
--- NOTE | 2017-12-19 17:22 | Progress Notes ---
DATE: 12/19/2017 SUBJECTIVE: Chart reviewed and the patient interviewed. Also, discussed the patient's condition with the staff and reviewed records and labs. The patient is calm and cooperative. The patient also is sleeping slightly better. The patient is less irritable and less agitated. He also compliant with taking his medications with no side effects of medications. ASSESSMENT: The patient is less agitated and less psychotic. TREATMENT PLAN: Continue to monitor behavior and condition closely. Also, continue to work on his ineffective coping and followup. [facility]# [id number]
--- NOTE | 2017-12-19 19:28 | Progress Notes ---
DATE: 12/19/2017 INTERNAL MEDICINE CONSULTATION FOLLOWUP SUBJECTIVE: The patient is an 82-year-old male. CURRENT MEDICAL PROBLEMS: Include diabetes mellitus, hypertension, hyperlipidemia, enlarged prostate, peptic ulcer disease, gastritis, arthritis, also receiving treatment for UTI. OBJECTIVE: VITAL SIGNS: Stable. LUNGS: Clear. HEART: First and second heart sounds are normal. No gallop. ____ present. ABDOMEN: Soft, minimal epigastric tenderness. Kidneys are not palpable. No CVA tenderness. EXTREMITIES: Show arthritis. NEUROLOGIC: The patient has dementia. PLAN: Continue current medical management and psych consult reviewed. JOB# [id number]
[2017-12-19] MEDS: Escitalopram Oxalate 5 mg Tab PO SCH (20:23)
[2017-12-20] MEDS: INSULIN ASPART SLIDING SCALE 100 UNITS/ML UNIT SUBQ SCH ×4 (06:48→20:25)
[2017-12-20] MEDS: Pantoprazole 40 mg EC Tab PO SCH (06:48)
[2017-12-20] MEDS: Lactulose 10 Gm/15 mL 30mL UDC PO SCH ×2 (08:53→17:10)
[2017-12-20] MEDS: Multivitamin Tab PO SCH (08:56)
--- NOTE | 2017-12-20 11:33 | Progress Notes ---
DATE: SUBJECTIVE: Chart reviewed and the patient interviewed. Also discussed the patient's condition with the staff and reviewed records and labs. The patient continued to be in a depressed mood and is still withdrawn. The patient also has episodes of irritability and anxiety. He also is still cooperative with his treatment and easier to redirect him. Also, denies any side effects of medications. ASSESSMENT: The patient is still psychotic and is still agitated. TREATMENT PLAN: Continue to monitor behavior and condition closely. Also, continue adjusting psychotropic medications and work on behavioral modification. JOB# [id number]
--- NOTE | 2017-12-20 20:14 | Progress Notes ---
DATE: 12/20/2017 INTERNAL MEDICINE CONSULTATION FOLLOWUP CURRENT MEDICAL PROBLEMS: Include hypertension, coronary artery disease, diabetes mellitus, enlarged prostate, peptic ulcer disease, gastritis, arthritis, being treated for UTI. OBJECTIVE: VITAL SIGNS: Stable. LUNGS: Clear. HEART: First and second heart sounds are normal. No gallops. Systolic present. ABDOMEN: Soft. Bowel sounds are present and good. EXTREMITIES: Show arthritis. NEUROLOGIC: The patient has dementia. PLAN: Continue current medical management and psych consult reviewed. JOB# [id number]
[2017-12-20] MEDS: Escitalopram Oxalate 5 mg Tab PO SCH (20:25)
[2017-12-21] MEDS: Pantoprazole 40 mg EC Tab PO SCH (06:45)
[2017-12-21] MEDS: INSULIN ASPART SLIDING SCALE 100 UNITS/ML UNIT SUBQ SCH ×4 (06:45→21:33)
[2017-12-21] MEDS: Multivitamin Tab PO SCH (08:50)
[2017-12-21] MEDS: Lactulose 10 Gm/15 mL 30mL UDC PO SCH ×2 (08:50→16:10)
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
[2017-12-21] MEDS: Escitalopram Oxalate 5 mg Tab PO SCH (21:27)
--- NOTE | 2017-12-22 01:33 | Progress Notes ---
DATE: 12/21/2017 SUBJECTIVE: The patient is currently in the hospital, mostly depressed, withdrawn, irritable, somewhat anxious, still remains highly impulsive, highly unpredictable, history of hypersexual behaviors. The patient is anxious, asking for anxiety medications, sometimes poorly oriented, seems to be approaching his baseline, calmer, more cooperative, less aggressive behaviors, less acting out behaviors. Medications were reviewed including dosages and frequencies, currently on Namenda, Lexapro, and Aricept. ASSESSMENT: The patient likely approaching his baseline. Ongoing safety concerns, concerns about irritability. The patient has been accepted back [facility]. We will monitor for further 24 hours to monitor for any side effects. [facility]# [id number]
--- NOTE | 2017-12-22 05:24 | Progress Notes ---
DATE: 12/21/2017 INTERNAL MEDICINE CONSULTATION FOLLOWUP SUBJECTIVE: The patient's current medical problems include hypertension, diabetes mellitus, angiopathy, neuropathy, coronary artery disease, peptic ulcer, arthritis. Also being treated for UTI. No new symptoms. OBJECTIVE: VITAL SIGNS: Stable. LUNGS: Clear bilaterally. No adventitious sounds. HEART: First and second heart sound normal. No gallop. Systolic present. ABDOMEN: Soft, bowel sounds present. EXTREMITIES: Show arthritis. NEUROLOGIC: The patient has dementia. PLAN: Continue current medical management. Psych consult reviewed. JOB# [id number]
[2017-12-22] MEDS: Pantoprazole 40 mg EC Tab PO SCH (06:42)
[2017-12-22] MEDS: INSULIN ASPART SLIDING SCALE 100 UNITS/ML UNIT SUBQ SCH ×4 (06:42→21:14)
[2017-12-22] MEDS: Multivitamin Tab PO SCH (08:49)
[2017-12-22] MEDS: Lactulose 10 Gm/15 mL 30mL UDC PO SCH ×2 (08:51→18:01)
--- NOTE | 2017-12-22 11:25 | Diagnostic Imaging Report ---
Ultrasound urinary bladder HISTORY: Prostate enlargement The exam demonstrates enlarged prostate gland (6.1 x 5.5 x 6.8 cm). Detailed parenchymal evaluation Limited with transabdominal sonographic technique. An approximate 1.5 cm echogenic focus noted within the prostate gland. Etiology uncertain. Correlation with laboratory data including PSA recommended. There is associated encroachment on the floor of the urinary bladder. Limited evaluation due to incomplete distention. No obvious intraluminal abnormalities. IMPRESSION: 1. Enlarged prostate gland. The detailed assessment of the parenchyma is limited with transabdominal sonographic technique, a 1.5 cm echogenic focus noted within the gland. Etiology uncertain. Correlation with laboratory data (PSA) recommended. Associated encroachment on the floor of the urinary bladder.
--- NOTE | 2017-12-22 18:47 | Progress Notes ---
DATE: 12/22/2017 The patient poorly oriented, confused, needs constant reorientation, does not know why he is here, says he is feeling "okay." Concerns for impulsivity, poor redirection, anxiety. MEDICATIONS: Noted. MENTAL STATUS EXAMINATION: Stated age. Fair eye contact, withdrawn, mostly in his room, ongoing concerns about impulsivity. He seems to be showing some signs of improvement. The patient has been accepted to [facility]. Waiting for further stabilization, likely approaching his baseline. JOB# [id number]
--- NOTE | 2017-12-22 20:49 | Progress Notes ---
DATE: 12/22/2017 INTERNAL MEDICINE CONSULTATION FOLLOWUP SUBJECTIVE: The patient is a patient of mine. CURRENT MEDICAL PROBLEMS: Include hypertension, diabetes, diabetic angiopathy, neuropathy, nephropathy, coronary artery disease, peptic ulcer disease, and arthritis. OBJECTIVE: VITAL SIGNS: Stable. LUNGS: Clear. HEART: First and second heart sounds normal. No gallops. Systolic present. ABDOMEN: Soft. Bowel sounds present and good. EXTREMITIES: Show arthritis. NEUROLOGIC: The patient has dementia. PLAN: Continue current medical management. Psych consult reviewed. JOB# [id number]
--- NOTE | 2017-12-22 23:15 | Progress Notes ---
DATE: UROLOGY PROGRESS NOTE SUBJECTIVE: The patient is seen earlier today with no significant change. He still requires a diaper and is unaware of the leakage. PHYSICAL EXAMINATION: VITAL SIGNS: Temperature 98.4, heart rate 86, and blood pressure 117/56. ABDOMEN: Soft, nontender, and nondistended. Flanks also nontender. GENITALIA: Unremarkable. EXTREMITIES: No edema. LABORATORY DATA AND DIAGNOSTIC STUDIES: Bladder ultrasound was done and showed an enlarged prostate. The patient was incontinent, therefore a proper pre and postvoid exam was not done. I called the Radiology Department to ask for a better exam, but they were unable to do this. The sugar today was 237, 341, and 163. IMPRESSION: 1. Urinary incontinence, may be neurogenic and could be secondary to benign prostatic hypertrophy. Since I am not able to get the proper reading on his postvoid residual urine, we may have to recommend a cystoscopy for definitive assessment. The patient is already getting Flomax. 2. Diabetes, good control. 3. Hypertension, stable. 4. Pacemaker. No change. 5. Psychiatric disorder as per the specialist. JOB# [id number]
[2017-12-23] MEDS: INSULIN ASPART SLIDING SCALE 100 UNITS/ML UNIT SUBQ SCH ×2 (06:48→11:56)
[2017-12-23] MEDS: Pantoprazole 40 mg EC Tab PO SCH (06:49)
[2017-12-23] MEDS: Lactulose 10 Gm/15 mL 30mL UDC PO SCH (08:15)
[2017-12-23] MEDS: Multivitamin Tab PO SCH (08:16)
--- NOTE | 2017-12-23 18:31 | Discharge Summary ---
DATE OF DISCHARGE: 12/23/2017 JUSTIFICATION FOR HOSPITALIZATION: The patient was agitated, unruly, concerns about hypersexuality, unable to be cared for the lower level of care. HISTORY OF PRESENT ILLNESS: An 82-year-old male, confused on exam, not really answering any questions, had been unruly, agitated at the [facility], restless. History of sexually inappropriate behaviors, noted to be very confused on exam, poor historian. Noted to be restless. PAST PSYCHIATRIC HISTORY: Documentation of bipolar, also dementia. He has been to [facility] in the past. PAST MEDICAL HISTORY: Hypertension, diabetes, CAD, dyslipidemia. SOCIAL HISTORY: As noted. MENTAL STATUS EXAMINATION: Please see full psych eval for details. PROVISIONAL DIAGNOSIS: Dementia, rule out bipolar. Also, anxiety, unspecified; mood, unspecified; anxiety, unspecified. Also dementia with behaviour disturbances. Under medical, please see full H and P. HOSPITAL COURSE: After initial assessment, the patient was started on medications. Medications were adjusted and titrated including Lexapro, Aricept, Namenda. Over the course of the hospitalization mood improved, affect improved, less unruly, less agitated. No longer aggressive or violent, no longer hypersexual. Toward the latter end of his hospitalization, he was no longer exhibiting any hypersexual behaviors or aggressive behaviors and he was discharged. He was accepted to a care home facility. CONDITION UPON DISCHARGE: Improved, allowing ADLs. Fair eye contact, confused on exam. Mood "okay." Affect constricted. Thought processes were linear. No SI, no HI. No overt psychotic symptoms, better impulse control. PROVISIONAL DIAGNOSES: Dementia, dementia with behavioral disturbances, rule out bipolar, although no current evidence of bipolar, but it was documented. This will stand as a rule out. Also; mood, unspecified; anxiety, unspecified. Under medical, please see full H and P. PROGNOSIS: The patient follows up with outpatient mental health services and remains treatment compliant. Prognosis will improve, otherwise guarded. JOB# [id number]
--- NOTE | 2017-12-23 23:03 | Progress Notes ---
DATE: 12/23/2017 INTERNAL MEDICINE CONSULTATION FOLLOWUP SUBJECTIVE: The patient is an 82-year-old male. CURRENT MEDICAL PROBLEM: Diabetes mellitus, diabetic angiopathy, neuropathy, hypertension, COPD, coronary artery disease, arthritis, peptic ulcer disease. No new symptoms. OBJECTIVE: VITAL SIGNS: Stable. LUNGS: Show rhonchi, occasional crepitation, no bronchial breathing. HEART EXAM: First and second heart sounds normal. No gallop. Systolic present. ABDOMEN: Soft, bowel sounds present and good. EXTREMITIES: Show arthritis. NEUROLOGIC: The patient has dementia. PLAN: Continue current medical management. Psych consult reviewed. JOB# [id number]
== END 2017-12-23 16:40 | DRG 884 ==
LOC: ER 16:26 → GERO2 19:13 → GERO 12-10 19:13
PROVIDERS: ADMIT Psychiatry & Neurology Psychiatry; ATTEND Psychiatry & Neurology Psychiatry
DX: F03.91 Unspecified dementia, unspecified severity, with behavioral disturbance (principal); E87.1 Hypo-osmolality and hyponatremia; N39.0 Urinary tract infection, site not specified; F31.9 Bipolar disorder, unspecified; F41.9 Anxiety disorder, unspecified; F39 Unspecified mood [affective] disorder; F29 Unspecified psychosis not due to a substance or known physiological condition; I10 Essential (primary) hypertension; I25.10 Atherosclerotic heart disease of native coronary artery without angina pectoris; E78.5 Hyperlipidemia, unspecified; N40.0 Benign prostatic hyperplasia without lower urinary tract symptoms; K27.9 Peptic ulcer, site unspecified, unspecified as acute or chronic, without hemorrhage or perforation; M19.90 Unspecified osteoarthritis, unspecified site; R31.29 Other microscopic hematuria; J44.9 Chronic obstructive pulmonary disease, unspecified; K21.9 Gastro-esophageal reflux disease without esophagitis; E11.21 Type 2 diabetes mellitus with diabetic nephropathy; E11.40 Type 2 diabetes mellitus with diabetic neuropathy, unspecified; E11.51 Type 2 diabetes mellitus with diabetic peripheral angiopathy without gangrene; K29.70 Gastritis, unspecified, without bleeding; R32 Unspecified urinary incontinence; Z95.0 Presence of cardiac pacemaker; Z83.3 Family history of diabetes mellitus; Z82.49 Family history of ischemic heart disease and other diseases of the circulatory system; Z90.49 Acquired absence of other specified parts of digestive tract; Z79.4 Long term (current) use of insulin
CPT/HCPCS: 36415-UA; 71045-TC; 76857-TC; 80053-TC; 80061-TC; 81001-TC; 82948-90; 83036-90; 84153-90; 85025-TC; 93005; J1815; Z7610